=== PATIENT | female | born 1930 | race Caucasian/White ===

== ENCOUNTER → 2016-05-08 | Outpatient (CLI) | payer OTHER ==
[~2016-05-08] MED LIST: ACET-1311 PO; AMLO5TAB2 PO; ASPI-232 PO; BISA1TAB15 PO; CHOL20009 PO; CIPR-255 PO; DEXT20CA PO; FURO20TA PO; GABA1CAP PO; LORA-741 PO; METO25TA56 PO; MOML PO; NUTR-238 PO; OXYC-57 PO; POLY335019 PO; PRENTAB65 PO; SERT100T PO; SODI1ENE RE; SRQ/50 PO
[2016-05-08 11:17] LABS: BASO % 1.1 %; BASO ABS # 0.06 K/uL (0-0.2); COMPLETE YES; EOS % 2.8 %; HEMATOCRIT 31.6 % (37-47); IG% 0.4 %; LYMPH % 35.9 %; LYMPH ABS # 1.91 K/uL (1.2-3.4); MEAN CELL VOLUME 86.1 fL (80-100); MEAN CORPUSCULAR HEMOGLOBIN 28.6 pg (25-34); MEAN CORPUSCULAR HGB CONC 33.2 g/dl (32-36); NEUT % 53.8 %; PLATELET COUNT 217 K/uL (130-400); RED BLOOD COUNT 3.67 M/uL (4.2-5.4); WHITE BLOOD COUNT 5.32 K/uL (4.8-10.8)
[2016-05-08 11:26] LABS: BLOOD UREA NITROGEN 27 mg/dl (7-18); CALCIUM 8.9 mg/dl (8.5-10.1); CARBON DIOXIDE 27 mmol/L (21-32); CHLORIDE 106 mmol/L (98-107); GLUCOSE 154 mg/dl (70-99); POTASSIUM 4.5 mmol/L (3.5-5.1); SODIUM 141 mmol/L (136-145)
--- NOTE | 2016-05-15 12:18 | CODING QUERY MEDICAL NECESSITY ---
SUPPORTING DIAGNOSIS NEEDED A supporting diagnosis is required for the test/procedure performed on this patient in order for us to be reimbursed by the patient's insurance. Please provide a supporting diagnosis for the following test/procedure listed below next to the test name along with your signature. *If there is no additional diagnosis for this patient that would support the following test/procedure please document that below next to the test/procedure. Test(s)/Procedure(s) that require a supporting diagnosis: DOS 05/08 * Vitamin D DIAGNOSIS: Provider Signature: Date: Thank you [facility] Once completed, please kindly fax back to [phone] For questions please call [phone]
== END ==
LOC: C.LABUPHEI 10:46
PROVIDERS: ATTEND Family Medicine
DX: I12.9 Hypertensive chronic kidney disease with stage 1 through stage 4 chronic kidney disease, or unspecified chronic kidney disease (principal); N18.9 Chronic kidney disease, unspecified

== ENCOUNTER 2016-05-27 17:24 | Inpatient (IN) | payer OTHER ==
[~2016-05-27] VITALS: Ht 167.6 cm; Wt 70.3 kg
[2016-05-27] MEDS ORDERED: SODIUM CHLORIDE 0.9% 1000ML 1,000 ML IV STA (17:29)
--- NOTE | 2016-05-27 17:52 | EMERGENCY ROOM VISIT NOTE ---
History Report prepared by Chyna: Cole Simental Under the Supervision of: Dr. Leno Cabezas M.D. First contact with patient: 17:25 Chief Complaint: HIP PAIN Stated Complaint: HIP FX History of Present Illness The patient is an 85 year old female who presents to the Emergency Room with complaints of a sudden right hip fracture that occurred around 1200 today. Per EMS, the patient fell and then had an x-ray, which confirmed the right hip fracture. The patient was crying in pain when EMS got to the patient's room. She was given 75 mg Fentanyl prior to arrival. Her blood pressure is 98/73. She has baseline dementia. History is limited secondary to patient's dementia. Source of History: EMS Onset: Around 1200 today Position: other (right hip ) Quality: other (fracture) Timing: other (sudden) Note: Associated symptoms: Right hip pain. No other associated symptoms noted. Review of Systems ROS is limited secondary to patient's dementia. Past Medical & Surgical Medical Problems: (1) Abnormal EKG (2) Dementia (3) Hip fracture, right Family History Family history omitted secondary to age. Social History Marital Status: Housing Status: assisted Occupation Status: retired Current/Historical Medications Scheduled Acetaminophen (Tylenol), 650 MG PO Q6H Amlodipine Besylate (Norvasc), 5 MG PO DAILY Aspirin (Aspir-81), 2 TAB PO DAILY Bisacodyl (Bisacodyl), 2 TAB PO UD Cholecalciferol (Vitamin D), 1 TAB PO DAILY Dextromethorphan Hbr-Quinidine (Nuedexta), 10-20 MG PO DAILY Furosemide (Lasix), 10 MG PO DAILY Gabapentin (Neurontin), 100 MG PO TID Lorazepam (Ativan), 0.5 MG PO BID Metoprolol Tartrate (Lopressor) (Lopressor), 25 MG PO BID Nutritional Supplements (Nutritional Drink), 60 ML PO TID Polyethylene Glycol 3350 (Miralax), 17 GM PO DAILY Multivit-Min W/Fe-Fa (), 1 TAB PO DAILY Quetiapine Fumarate (Seroquel), 50 MG PO BID Sertraline Hcl (Zoloft), 200 MG PO DAILY Scheduled PRN Magnesium Hydroxide (Milk Of Magnesia), 30 ML PO UD PRN for Constipation Sodium Phosphates (Fleet Enema Six Pack), 1 EA RE UD PRN for Constipation Allergies Coded Allergies: Atorvastatin (Verified Allergy, Unknown, unknown, 05/27/16) Lisinopril (Verified Allergy, Unknown, unknown, 05/27/16) Penicillins (Verified Allergy, Unknown, unknown, 05/27/16) Pravastatin (Verified Allergy, Unknown, unknown, 05/27/16) Simvastatin (Verified Allergy, Unknown, unknown, 05/27/16) Sulfamethoxazole w/Trimethoprim (Verified Allergy, Unknown, unknown, ) Physical Exam Vital Signs Date Time Temp Pulse Resp B/P Pulse Ox O2 Delivery O2 Flow Rate FiO2 05/27/16 17:41 36.8 53 20 119/42 96 Room Air Physical Exam GENERAL: Patient is elderly-appearing and demented. In mild distress. HEENT: No acute trauma, normocephalic atraumatic, mucous membranes moist, no nasal congestion, no scleral icterus. NECK: No stridor, no adenopathy, no meningismus, trachea is midline. LUNGS: No dyspnea. Clear to auscultation and equal bilaterally. No wheeze, no rhonchi. HEART: Regular rate and rhythm. No murmurs, rubs, gallops appreciated. ABDOMEN: Soft, nontender, bowel sounds positive, no masses appreciated, no peritonitis. BACK: No midline tenderness, no CVA tenderness EXTREMITIES: Holding right hip flexed with pain on straightening, and pain on palpation. Distal pulses intact. NEUROLOGIC: Alert and oriented, no acute motor or sensory deficits, no focal weakness, cranial nerves grossly intact. SKIN: No rash, no jaundice, no diaphoresis. Medical Decision & Procedures ER Provider Diagnostic Interpretation: X ray results are stated below per my interpretation and the radiologist's interpretation. PELVIS 1 OR 2 VIEW ROUTINE CLINICAL HISTORY: Fall. Right hip pain. COMPARISON STUDY: No previous studies for comparison. FINDINGS: The sacroiliac joints and symphysis pubis are intact. There is no acute fracture within the pelvis or left hip. There is an acute comminuted, displaced and angulated intertrochanteric fracture of the right femur. IMPRESSION: Acute displaced, comminuted and angulated intertrochanteric right femoral fracture. Electronically signed by: Chun Gates M.D. 05/27/2016 7:07 PM Dictated Date/Time: 05/27/2016 7:06 PM RIGHT FEMUR 2 VIEWS ROUTINE CLINICAL HISTORY: Right hip pain following fall. COMPARISON: None FINDINGS: There is an acute displaced comminuted and angulated intertrochanteric fracture of the right femur. Alignment of the total right knee arthroplasty is anatomic. There is no periprosthetic fracture. There is a possible small right knee joint effusion. IMPRESSION: Acute displaced, comminuted and angulated intertrochanteric right femoral fracture. Electronically signed by: Chun Gates M.D. 05/27/2016 7:10 PM Dictated Date/Time: 05/27/2016 7:08 PM CHEST ONE VIEW PORTABLE CLINICAL HISTORY: Fall. Chest pain. COMPARISON STUDY: No previous studies for comparison. FINDINGS: There are median sternotomy wires and clips from bypass grafting. Mild cardiomegaly is noted without evidence of pulmonary edema. Lungs are clear. There is no pneumothorax or pleural effusion. IMPRESSION: 1. No acute findings. 2. Mild cardiomegaly. Electronically signed by: Chun Gates M.D. 05/27/2016 7:07 PM Dictated Date/Time: 05/27/2016 7:07 PM Laboratory Results 05/27/16 18:12 Red Blood Count 3.70, Mean Corpuscular Volume 85.4, Mean Corpuscular Hemoglobin 28.4, Mean Corpuscular Hemoglobin Concent 33.2, Mean Platelet Volume 9.7, Neutrophils (%) (Auto) 79.7, Lymphocytes (%) (Auto) 13.2, Monocytes (%) (Auto) 5.9, Eosinophils (%) (Auto) 0.7, Basophils (%) (Auto) 0.3, Neutrophils # (Auto) 9.54, Lymphocytes # (Auto) 1.58, Monocytes # (Auto) 0.71, Eosinophils # (Auto) 0.08, Basophils # (Auto) 0.03 05/27/16 18:12 Test 05/27/16 18:12 White Blood Count 11.96 K/uL (4.8-10.8) Red Blood Count 3.70 M/uL (4.2-5.4) Hemoglobin 10.5 g/dL (12.0-16.0) Hematocrit 31.6 % (37-47) Mean Corpuscular Volume 85.4 fL (80-100) Mean Corpuscular Hemoglobin 28.4 pg (25-34) Mean Corpuscular Hemoglobin Concent 33.2 g/dl (32-36) Platelet Count 221 K/uL (130-400) Mean Platelet Volume 9.7 fL (7.4-10.4) Neutrophils (%) (Auto) 79.7 % Lymphocytes (%) (Auto) 13.2 % Monocytes (%) (Auto) 5.9 % Eosinophils (%) (Auto) 0.7 % Basophils (%) (Auto) 0.3 % Neutrophils # (Auto) 9.54 K/uL (1.4-6.5) Lymphocytes # (Auto) 1.58 K/uL (1.2-3.4) Monocytes # (Auto) 0.71 K/uL (0.11-0.59) Eosinophils # (Auto) 0.08 K/uL (0-0.5) Basophils # (Auto) 0.03 K/uL (0-0.2) RDW Standard Deviation 42.7 fL (36.4-46.3) RDW Coefficient of Variation 13.7 % (11.5-14.5) Immature Granulocyte % (Auto) 0.2 % Immature Granulocyte # (Auto) 0.02 K/uL (0.00-0.02) Prothrombin Time 11.2 SECONDS (9.0-12.0) Prothromb Time International Ratio 1.0 (0.9-1.1) Activated Partial Thromboplast Time 44.7 SECONDS (21.0-31.0) Partial Thromboplastin Ratio 1.7 Anion Gap 8.0 mmol/L (3-11) Est Creatinine Clear Calc Drug Dose 28.9 ml/min Estimated GFR () 37.0 Estimated GFR (Non- 31.9 BUN/Creatinine Ratio 21.4 (10-20) Calcium Level 9.1 mg/dl (8.5-10.1) Laboratory results as reviewed by me. Medications Administered Medications (Trade) Dose Ordered Sig/Brenda Route Start Time Stop Time Status Last Admin Dose Admin Sodium Chloride (Nss 1000ml) 1,000 ml @ 75 mls/hr [id number] STAT IV 05/27/16 17:29 05/27/16 21:22 DC 05/27/16 18:15 75 MLS/HR ECG Indication: other (hip fracture) Rate (beats per minute): 50 Rhythm: sinus bradycardia Findings: T-wave inversion (Lateral), no acute ischemic change, no ectopy ED Course 172: The patient was evaluated in room B7. A complete history and physical exam was performed. 172: Ordered NSS 100 ml @ 75 mls/hr IV. 175: I reevaluated the patient and she is still comfortable. 1903: I reevaluated the patient and she is feeling alright. The patient expressed understanding and agreement of the treatment plan. The patient will be evaluated for further treatment. 1907: I discussed the patient with Dr. Rina JENSEN application development director - he will evaluate the patient for further treatment. Medical Decision Differential: Fracture, Dislocation, Cellulitis, Septic Joint, Ligamentous Injury, Effusion, DVT, amongst other pathologies entertained. 85 yr old female with fall on right hip several hours [employer] who had xray revealing hip fracture. Questionable whether she struck head or not but she has no contusion and family makes clear she is at her baseline. She was given fentanyl [employer] which seems to keep her comfortable. Imaging here with intra- troch fracture. Will bring in to medical team with ortho contacted for consult. Consults Time Called: 1903 Consulting Physician: Dr. Rina JENSEN application development director Returned Call: 1907 I discussed the patient with Dr. Rina JENSEN application development director - he will evaluate the patient for further treatment. Impression Primary Impression: Intertrochanteric fracture of right hip Additional Impression: Fall Scribe Attestation The scribe's documentation has been prepared under my direction and personally reviewed by me in its entirety. I confirm that the note above accurately reflects all work, treatment, procedures, and medical decision making performed by me. Departure Information Dispostion Being Evaluated By Hospitalist Referrals Ignacia Meier (PCP) Patient Instructions My [facility] Problem Qualifiers Primary Impression: Intertrochanteric fracture of right hip Encounter type: initial encounter Fracture type: closed Qualified Codes: S72.141A - Displaced intertrochanteric fracture of right femur, initial encounter for closed fracture Additional Impression: Fall Encounter type: initial encounter Qualified Codes: W19.XXXA - Unspecified fall, initial encounter
[2016-05-27 18:28] LABS: BASO % 0.3 %; BASO ABS # 0.03 K/uL (0-0.2); COMPLETE YES; EOS % 0.7 %; HEMATOCRIT 31.6 % (37-47); IG% 0.2 %; LYMPH % 13.2 %; LYMPH ABS # 1.58 K/uL (1.2-3.4); MEAN CELL VOLUME 85.4 fL (80-100); MEAN CORPUSCULAR HEMOGLOBIN 28.4 pg (25-34); MEAN CORPUSCULAR HGB CONC 33.2 g/dl (32-36); MEAN PLATELET VOLUME 9.7 fL (7.4-10.4); MONO % 5.9 %; NEUT % 79.7 %; PLATELET COUNT 221 K/uL (130-400); WHITE BLOOD COUNT 11.96 K/uL (4.8-10.8)
[2016-05-27] MEDS ORDERED: AMLO5TAB2 PO (18:30)
[2016-05-27] MEDS ORDERED: CHOL20009 PO (18:30)
[2016-05-27] MEDS ORDERED: BISA1TAB15 PO (18:30)
[2016-05-27] MEDS ORDERED: ASPI-232 PO (18:30)
[2016-05-27] MEDS ORDERED: ACET-1311 PO (18:30)
[2016-05-27] MEDS ORDERED: LORA-741 PO (18:30)
[2016-05-27] MEDS ORDERED: METO25TA56 PO (18:30)
[2016-05-27] MEDS ORDERED: SRQ/50 PO (18:30)
[2016-05-27] MEDS ORDERED: SODI1ENE RE (18:30)
[2016-05-27] MEDS ORDERED: GABA1CAP PO (18:30)
[2016-05-27] MEDS ORDERED: FURO20TA PO (18:30)
[2016-05-27] MEDS ORDERED: PRENTAB65 PO (18:30)
[2016-05-27] MEDS ORDERED: POLY335019 PO (18:30)
[2016-05-27] MEDS ORDERED: DEXT20CA PO (18:30)
[2016-05-27] MEDS ORDERED: MOML PO (18:30)
[2016-05-27] MEDS ORDERED: SERT100T PO (18:30)
[2016-05-27 18:36] LABS: PARTIAL THROMBOPLASTIN RATIO 1.7; PROTHROMBIN TIME (PATIENT) 11.2 SECONDS (9.0-12.0)
[2016-05-27] MEDS ORDERED: NUTR-238 PO (18:36)
[2016-05-27 18:43] LABS: BLOOD UREA NITROGEN 32 mg/dl (7-18); BUN/CREATININE RATIO 21.4 (10-20); CALCIUM 9.1 mg/dl (8.5-10.1); CARBON DIOXIDE 26 mmol/L (21-32); CHLORIDE 107 mmol/L (98-107); GLUCOSE 137 mg/dl (70-99); POTASSIUM 4.8 mmol/L (3.5-5.1); SODIUM 141 mmol/L (136-145)
--- NOTE | 2016-05-27 19:09 | DIAGNOSTIC IMAGING REPORT ---
PELVIS 1 OR 2 VIEW ROUTINE CLINICAL HISTORY: Fall. Right hip pain. COMPARISON STUDY: No previous studies for comparison. FINDINGS: The sacroiliac joints and symphysis pubis are intact. There is no acute fracture within the pelvis or left hip. There is an acute comminuted, displaced and angulated intertrochanteric fracture of the right femur. IMPRESSION: Acute displaced, comminuted and angulated intertrochanteric right femoral fracture. Electronically signed by: Chun Gates M.D. 05/27/2016 7:07 PM Dictated Date/Time: 05/27/2016 7:06 PM
--- NOTE | 2016-05-27 19:09 | DIAGNOSTIC IMAGING REPORT ---
CHEST ONE VIEW PORTABLE CLINICAL HISTORY: Fall. Chest pain. COMPARISON STUDY: No previous studies for comparison. FINDINGS: There are median sternotomy wires and clips from bypass grafting. Mild cardiomegaly is noted without evidence of pulmonary edema. Lungs are clear. There is no pneumothorax or pleural effusion. IMPRESSION: 1. No acute findings. 2. Mild cardiomegaly. Electronically signed by: Chun Gates M.D. 05/27/2016 7:07 PM Dictated Date/Time: 05/27/2016 7:07 PM
--- NOTE | 2016-05-27 19:12 | DIAGNOSTIC IMAGING REPORT ---
RIGHT FEMUR 2 VIEWS ROUTINE CLINICAL HISTORY: Right hip pain following fall. COMPARISON: None FINDINGS: There is an acute displaced comminuted and angulated intertrochanteric fracture of the right femur. Alignment of the total right knee arthroplasty is anatomic. There is no periprosthetic fracture. There is a possible small right knee joint effusion. IMPRESSION: Acute displaced, comminuted and angulated intertrochanteric right femoral fracture. Electronically signed by: Chun Gates M.D. 05/27/2016 7:10 PM Dictated Date/Time: 05/27/2016 7:08 PM
--- NOTE | 2016-05-27 19:51 | History and Physical ---
History & Physical Date & Time of Service: May 27, 2016 at 19:42 Chief Complaint: Hip Fx Primary Care Physician: Ignacia Meier History of Present Illness Source: patient Belinda Anne is a 85 yo female who resides at the [facility] who presents after a fall causing a right hip fracture at noon today. She has a background of dementia and hypertension. It does not seem that she has had a hip fracture before. Apparently she had an XRay at the [facility] confirming the fracture. Her family was initially here upon arrival to the ED and said she was mentating at baseline. She currently reports feeling very sore but thought she was in [place]. Past Medical/Surgical History PMHx: Dementia Depression Hypertension PSHx: Unknown Family History No pertinent FHx Social History Smoking Status: Never Smoker Marital Status: Occupational Status: retired Multi-Drug Resistant Organisms History of MDRO: No Allergies Coded Allergies: Atorvastatin (Verified Allergy, Unknown, unknown, 05/27/16) Lisinopril (Verified Allergy, Unknown, unknown, 05/27/16) Penicillins (Verified Allergy, Unknown, unknown, 05/27/16) Pravastatin (Verified Allergy, Unknown, unknown, 05/27/16) Simvastatin (Verified Allergy, Unknown, unknown, 05/27/16) Sulfamethoxazole w/Trimethoprim (Verified Allergy, Unknown, unknown, ) Home Medications Scheduled Acetaminophen (Tylenol), 650 MG PO Q6H Amlodipine Besylate (Norvasc), 5 MG PO DAILY Aspirin (Aspir-81), 2 TAB PO DAILY Bisacodyl (Bisacodyl), 2 TAB PO UD Cholecalciferol (Vitamin D), 1 TAB PO DAILY Dextromethorphan Hbr-Quinidine (Nuedexta), 10-20 MG PO DAILY Furosemide (Lasix), 10 MG PO DAILY Gabapentin (Neurontin), 100 MG PO TID Lorazepam (Ativan), 0.5 MG PO BID Metoprolol Tartrate (Lopressor) (Lopressor), 25 MG PO BID Nutritional Supplements (Nutritional Drink), 60 ML PO TID Polyethylene Glycol 3350 (Miralax), 17 GM PO DAILY Multivit-Min W/Fe-Fa (), 1 TAB PO DAILY Quetiapine Fumarate (Seroquel), 50 MG PO BID Sertraline Hcl (Zoloft), 200 MG PO DAILY Scheduled PRN Magnesium Hydroxide (Milk Of Magnesia), 30 ML PO UD PRN for Constipation Sodium Phosphates (Fleet Enema Six Pack), 1 EA RE UD PRN for Constipation Review of Systems A ROS was unable to be completed due to the patients altered mental status Physical Exam Vital Signs Date Time Temp Pulse Resp B/P Pulse Ox O2 Delivery O2 Flow Rate FiO2 05/27/16 17:41 36.8 53 20 119/42 96 Room Air General Appearance: WD/WN, + mild distress Head: normocephalic, atraumatic Eyes: normal inspection ENT: hearing grossly normal Neck: supple, no JVD Respiratory/Chest: lungs clear, normal breath sounds, no respiratory distress Cardiovascular: regular rate, rhythm, no murmur, normal peripheral pulses Abdomen/GI: normal bowel sounds, non tender, soft Extremities/Musculoskelatal: no calf tenderness, no pedal edema, + pertinent finding (Right leg in flexed position, tender to palpation. could still move toes but would not move leg. ) Neurologic/Psych: alert, + disoriented (x3) Skin: no rash Diagnostics Laboratory Results Results Past 24 Hours Test 05/27/16 18:12 Range/Units White Blood Count 11.96 4.8-10.8 K/uL Red Blood Count 3.70 4.2-5.4 M/uL Hemoglobin 10.5 12.0-16.0 g/dL Hematocrit 31.6 37-47 % Mean Corpuscular Volume 85.4 80-100 fL Mean Corpuscular Hemoglobin 28.4 25-34 pg Mean Corpuscular Hemoglobin Concent 33.2 32-36 g/dl Platelet Count 221 130-400 K/uL Mean Platelet Volume 9.7 7.4-10.4 fL Neutrophils (%) (Auto) 79.7 % Lymphocytes (%) (Auto) 13.2 % Monocytes (%) (Auto) 5.9 % Eosinophils (%) (Auto) 0.7 % Basophils (%) (Auto) 0.3 % Neutrophils # (Auto) 9.54 1.4-6.5 K/uL Lymphocytes # (Auto) 1.58 1.2-3.4 K/uL Monocytes # (Auto) 0.71 0.11-0.59 K/uL Eosinophils # (Auto) 0.08 0-0.5 K/uL Basophils # (Auto) 0.03 0-0.2 K/uL RDW Standard Deviation 42.7 36.4-46.3 fL RDW Coefficient of Variation 13.7 11.5-14.5 % Immature Granulocyte % (Auto) 0.2 % Immature Granulocyte # (Auto) 0.02 0.00-0.02 K/uL Prothrombin Time 11.2 9.0-12.0 SECONDS Prothromb Time International Ratio 1.0 0.9-1.1 Activated Partial Thromboplast Time 44.7 21.0-31.0 SECONDS Partial Thromboplastin Ratio 1.7 Sodium Level 141 136-145 mmol/L Potassium Level 4.8 3.5-5.1 mmol/L Chloride Level 107 98-107 mmol/L Carbon Dioxide Level 26 21-32 mmol/L Anion Gap 8.0 3-11 mmol/L Blood Urea Nitrogen 32 7-18 mg/dl Creatinine 1.50 0.60-1.20 mg/dl Est Creatinine Clear Calc Drug Dose 28.9 ml/min Estimated GFR () 37.0 Estimated GFR (Non- 31.9 BUN/Creatinine Ratio 21.4 10-20 Random Glucose 137 70-99 mg/dl Calcium Level 9.1 8.5-10.1 mg/dl Total Creatine Kinase 41 26-192 U/L Creatine Kinase MB 0.8 0.5-3.6 ng/ml Creatine Kinase MB Ratio 2.0 0-3.0 Troponin I < 0.015 0-0.045 ng/ml Diagnostic Radiology PELVIS 1 OR 2 VIEW ROUTINE CLINICAL HISTORY: Fall. Right hip pain. COMPARISON STUDY: No previous studies for comparison. FINDINGS: The sacroiliac joints and symphysis pubis are intact. There is no acute fracture within the pelvis or left hip. There is an acute comminuted, displaced and angulated intertrochanteric fracture of the right femur. IMPRESSION: Acute displaced, comminuted and angulated intertrochanteric right femoral fracture. RIGHT FEMUR 2 VIEWS ROUTINE CLINICAL HISTORY: Right hip pain following fall. COMPARISON: None FINDINGS: There is an acute displaced comminuted and angulated intertrochanteric fracture of the right femur. Alignment of the total right knee arthroplasty is anatomic. There is no periprosthetic fracture. There is a possible small right knee joint effusion. IMPRESSION: Acute displaced, comminuted and angulated intertrochanteric right femoral fracture. Electronically signed by: Chun Gates M.D. 05/27/2016 7:10 PM Dictated Date/Time: 05/27/2016 7:08 PM CHEST ONE VIEW PORTABLE CLINICAL HISTORY: Fall. Chest pain. COMPARISON STUDY: No previous studies for comparison. FINDINGS: There are median sternotomy wires and clips from bypass grafting. Mild cardiomegaly is noted without evidence of pulmonary edema. Lungs are clear. There is no pneumothorax or pleural effusion. IMPRESSION: 1. No acute findings. 2. Mild cardiomegaly. EKG Sinus bradycardia, 50bpm, no ST elevation Impression Assessment and Plan 85 yo F with dementia and hypertension who presents with R hip fracture. Plan: R hip fracture: - NPO except meds - IV fluids - CXR and EKG completed - Dilaudid for pain - Dr Rosa consulted by ED Hypertension - Hold Lasix 10mg daily, hold amlodipine 5mg daily, hold aspirin 81mg daily - Hydralazine 10mg IV PRN SBP > 160 or DBP > 110 Depression - Hold Seroquel 50mg BID and Zoloft 200mg daily and restart post-operatively Constipation - Holding daily Senna/Miralax, restart post-op VTE - Hold pre-operatively CODE STATUS: Need to discuss with family Dispo: Med Surg VTE Prophylaxis VTE Risk Assessment Done? Y/N: Yes Risk Level: Moderate Resident Tracking Resident Involvement: Resident Care Provided Care Provided: [facility] Assessment and Plan Attending Addendum: I have seen and examined this patient, have directed their medical care, have supervised the resident's interaction, and agree with the H&P as noted above. History of Present Illness: The patient is an 85-year-old female resident of [facility] who sustained a fall today on her right hip around noon, developed immediate pain, had emergency x-ray performed which confirmed a right hip fracture. She was Then sent emergency department for assessment. Her family was initially present in the emergency department, reported that she was at her baseline dementia state. Her history of present illness is otherwise limited due to her altered mental state. Review of systems: Severely limited due to patient's altered mental state as noted above, but nursing staff at [facility], and family report that she is otherwise at her baseline state. The patient is awake, alert and disoriented, normocephalic and atraumatic, lying in bed and in no acute distress. HEENT--PERRL, EOMI, mucous membranes and oropharynx dry. Neck--supple, no JVD or bruits, thyroid normal, trachea midline, no adenopathy. Heart--normal S1 and S2, no extra beats, no murmurs, rubs or gallops. Lungs--clear bilaterally, no respiratory distress, no accessory muscle use. Abdomen--normal bowel sounds and soft, nontender and nondistended, no hernias or masses, no organomegaly. Extremities--no cyanosis, clubbing or edema. There are good distal pulses b/l. Dermatologic--normal skin turgor, normal color, warm and dry, no abnormal lymph nodes, no rash. Neurologic--cranial nerves II through XII grossly intact. Rheumatologic--reproducible pain over her right hip area Psychiatric--demented, disoriented. Imaging Studies: Hip and Pelvis X-Rays: Consistent with right hip fracture. EKG--sinus bradycardia at a rate of [address] segment elevations in V1 to 3, and T-wave inversion in lead V4, with T-wave flattening in lead V5. Assessment and Plan: Right hip fracture--Dr. Sepulveda has been consulted from orthopedics, but the patient will need medical clearance first. Abnormal EKG--suggestion of anterior ischemia. Will continue metoprolol tartrate but reduced to 12.5 mg by mouth twice a day, and add Nitropaste 1/2 inch to anterior chest wall every 6 hours. We'll order 2-D echocardiogram, admitted to telemetry, and consult cardiology. We will hold amlodipine 5 mg by mouth daily, furosemide 10 mg by mouth daily, Dementia/depression: Hold sertraline, Seroquel, Nuedexta and gabapentin. Will change Ativan to IV and use when necessary.
[2016-05-27] MEDS ORDERED: ONDANSETRON INJ 2 MG/ML 2 ML VIAL IV PRN (20:45)
[2016-05-27] MEDS ORDERED: LORAZEPAM 2 MG/ML 1 ML VIAL IV PRN (20:45)
[2016-05-27] MEDS ORDERED: ZOLPIDEM TARTRATE 5 MG TAB PO PRN (20:45)
[2016-05-27] MEDS ORDERED: DiphenhydrAMINE HCL 50 MG/ML VIAL IV PRN (20:45)
[2016-05-27] MEDS ORDERED: PROMETHAZINE HCL INJ 12.5 MG in SODIUM CHLORIDE 0.9% 50ML 50 ML IV PRN (20:45)
[2016-05-27] MEDS ORDERED: BISACODYL 10 MG SUPP PR PRN (20:45)
[2016-05-27] MEDS ORDERED: DOCUSATE SODIUM 100 MG CAP PO PRN (20:45)
[2016-05-27] MEDS ORDERED: ACETAMINOPHEN 325 MG TAB PO PRN (20:45)
[2016-05-27] MEDS: METOPROLOL TARTRATE 25 MG TAB PO SCH (21:00)
--- NOTE | 2016-05-27 21:43 | ORTHOPEDIC CONSULTATION ---
DATE OF CONSULTATION: 05/27/2016 HISTORY OF PRESENT ILLNESS: The patient is an 85-year-old female who lives at [facility] suffered a fall and fractured hip this afternoon. Admitted on the medical service. PAST MEDICAL HISTORY: She has dementia, depression, hypertension, could not get history otherwise of her as she is disoriented. SOCIAL HISTORY: Nonsmoker. Does have a right knee replacement. ALLERGIES: Some multiple medications. See dictated H\T\P, per medicine attending these were reviewed. PHYSICAL EXAMINATION: Demonstrates that she is pleasantly demented, lying in bed in supine position. Just only her hip flexed because of pain. Movement of the hip causes pain. IMAGING DATA: Her radiographs reviewed, demonstrates that she has a displaced intratrochanteric hip fracture, angulated in varus. ASSESSMENT: Acute displaced angulated intertrochanteric hip fracture, right hip. PLAN: Trochanteric femoral nail fixation. This will be performed pending medical clearance and will need to discuss with her power of patent prosecution attorney or family members with regard to consenting her for surgery as patient is demented to perform any procedure such as that.
[2016-05-27] MEDS: NITROGLYCERIN OINT 2% 1GM PACKET EXT SCH (22:00)
[2016-05-27 22:13] VITALS: BP 134/71; PULSE 72; TEMP 36.5; O2SAT 96; Ht 167.6 cm; Wt 70.3 kg
[2016-05-27 22:36] LABS: CKMB/CK RATIO 1.6 (0-3.0)
[2016-05-28] VITALS (8 sets, daily range): BP systolic 90–137; BP diastolic 43–53; PULSE 61–83; TEMP 36.8–38.1; O2SAT 91–100
[2016-05-28] MEDS: SODIUM CHLOR 0.45% + 20MEQ KCL 1,000 ML IV SCH ×3 (00:28→22:00)
[2016-05-28] MEDS: NITROGLYCERIN OINT 2% 1GM PACKET EXT SCH ×4 (04:00→22:24)
[2016-05-28 05:39] LABS: BASO % 0.5 %; BASO ABS # 0.04 K/uL (0-0.2); COMPLETE YES; HEMATOCRIT 28.4 % (37-47); IG% 0.1 %; LYMPH % 25.9 %; LYMPH ABS # 2.06 K/uL (1.2-3.4); MEAN CELL VOLUME 85.5 fL (80-100); MEAN CORPUSCULAR HEMOGLOBIN 28.6 pg (25-34); MEAN CORPUSCULAR HGB CONC 33.5 g/dl (32-36); MEAN PLATELET VOLUME 9.6 fL (7.4-10.4); MONO % 8.4 %; NEUT % 63.1 %; PLATELET COUNT 218 K/uL (130-400); RED BLOOD COUNT 3.32 M/uL (4.2-5.4); WHITE BLOOD COUNT 7.96 K/uL (4.8-10.8)
[2016-05-28 05:55] LABS: PROTHROMBIN TIME (PATIENT) 11.2 SECONDS (9.0-12.0)
[2016-05-28] MEDS: HYDROmorphone INJ 0.5 MG/0.5 ML SYR IV PRN ×3 (06:08→15:55)
[2016-05-28 06:09] LABS: ALT/SGPT 17 U/L (12-78); AST/SGOT 19 U/L (15-37); BLOOD UREA NITROGEN 31 mg/dl (7-18); BUN/CREATININE RATIO 22.1 (10-20); CALCIUM 8.5 mg/dl (8.5-10.1); CARBON DIOXIDE 24 mmol/L (21-32); CHLORIDE 107 mmol/L (98-107); GLUCOSE 120 mg/dl (70-99); POTASSIUM 4.7 mmol/L (3.5-5.1); SODIUM 141 mmol/L (136-145)
[2016-05-28 06:13] LABS: ALB/GLOB RATIO 1.1 (0.9-2); ALKALINE PHOSPHATASE 107 U/L (45-117); CKMB/CK RATIO 1.3 (0-3.0)
[2016-05-28] MEDS ORDERED: PERFLUTREN LIPID MICROSPHERE (DEFINITY) IV ONE (07:32)
[2016-05-28] MEDS: METOPROLOL TARTRATE 25 MG TAB PO SCH ×2 (07:33→21:00)
[2016-05-28] MEDS ORDERED: INFLUENZA VIRUS QUAD VACCINE 0.5 ML SYR IM. ONE (08:00)
[2016-05-28] MEDS ORDERED: PNEUMOCOCCAL POLYSACCHARIDES 25 MCG/0.5 ML VIAL/SYR IM. ONE (08:00)
[2016-05-28] MEDS ORDERED: PNEUMOCOCCAL ADMINISTRATION CHARGE ONE (08:00)
[2016-05-28] MEDS ORDERED: INFLUENZA ADMINISTRATION CHARGE ONE (08:00)
--- NOTE | 2016-05-28 10:11 | ECHOCARDIOGRAM REPORT ---
*NOTICE TO RECEIVING REPUBLICAN AGENCY This information is strictly Confidential and protected under [place] law. [place] law prohibits you from making any further disclosure of this information unless further disclosure is expressly permitted by the written consent of the person to whom it pertains or is authorized by law. A general authorization for the release of medical or other information is not sufficient for this purpose. Hospital accepts no responsibility if the information is made available to any other person, INCLUDING THE PATIENT. Interpretation Summary * Name: JASON MITCHELL Study Date: 05/28/2016 08:10 AM BP: 109/48 mmHg * Patient Location: .MSICU\S\E108\S\1 HR: 62 * : 1930 (M/d/yyyy) Gender: Female Height: 66 in * Age: 85 yrs Ethnicity: CA Weight: 158 lb * Ordering Physician: Olivia Cavanaugh * Performed By: Orin Yao * * Reason For Study: ABNORMAL EKG, PRE-OP HIP ARTHROPLASTY * BSA: 1.8 m2 * -- Conclusions -- * 1. Normal left ventricular size and systolic function. EF 55-60%. Dyskinesis of the apex. Akinesis of the mid to distal septum. Mild hypokinesis of the mid anteroseptum. No visualized apical thrombus. Mild concentric left ventricular hypertrophy. Type 1 diastolic dysfunction. * 2. Sclerotic aortic valve without significant stenosis. * 3. Technically difficult study, enhanced with IV Definity. 4. No prior study available for comparison. Procedure Details * A complete two-dimensional transthoracic echocardiogram was performed (2D, M-mode, Doppler and color flow Doppler). * The study was technically difficult. * A contrast injection of Definity was performed to improve assessment of LV function. * Contrast was injected into an intravenous site in the right arm. * One vial of Definity ultrasound contrast was diluted in normal saline to a total volume of 10 ml. A total of '2' ml of solution was administered during imaging. * Lot # [id number] of Definity utilized for procedure. * Expiration date 10/18. * The attending nurse who injected the contrast agent was BENITA PENN RN. Left Ventricle * Normal left ventricular size and systolic function. EF 55-60%. Dyskinesis of the apex. Akinesis of the mid to distal septum. Mild hypokinesis of the mid anteroseptum. No visualized apical thrombus. Mild concentric left ventricular hypertrophy. Type 1 diastolic dysfunction. Right Ventricle * The right ventricle is normal in size and function. * The right ventricular systolic function is normal as assessed by tricuspid annular plane systolic excursion (TAPSE) (normal >1.5 cm). Atria * The left atrial size is normal. * Right atrial size is normal. * There is no evidence of atrial septal defect, but resolution does not allow assessment for a patent foramen ovale. Mitral Valve * The mitral valve leaflets appear thickened, but open well. * There is mild mitral annular calcification. * There is no mitral valve stenosis. * There is trace mitral regurgitation. Tricuspid Valve * The tricuspid valve is not well visualized, but is grossly normal. * There is no tricuspid stenosis. * Significant tricuspid regurgitation is absent. Aortic Valve * Sclerotic aortic valve without significant stenosis. * There is no significant aortic regurgitation. Pulmonic Valve * The pulmonary valve is inadequately visualized, but the Doppler data is adequate for interpretation. * There is no pulmonic valvular stenosis. * Trace pulmonic valvular regurgitation. Great Vessels * The aortic root is normal size. * Ascending aorta of normal dimension Pericardium/Pleural * There is no pericardial effusion. Great Vessels * Normal inferior vena cava size and collapsability with sniff indicates a normal right atrial pressure of 3 mmHg MMode 2D Measurements and Calculations IVSd 1.2 cm IVSs 1.4 cm LVIDd 4.4 cm LVIDs 2.5 cm LVPWd 1.2 cm LVPWs 1.5 cm IVS/LVPW 0.97 FS 43.2 % EDV(Teich) 86.6 ml ESV(Teich) 22.0 ml EF(Teich) 74.6 % EDV(cubed) 83.8 ml ESV(cubed) 15.4 ml EF(cubed) 81.7 % % IVS thick 22.0 % % LVPW thick 26.6 % LV mass(C)d 184.5 grams LV mass(C)dI 102.0 grams/m\S\2 LV mass(C)s 119.7 grams LV mass(C)sI 66.2 grams/m\S\2 SV(Teich) 64.5 ml SI(Teich) 35.7 ml/m\S\2 SV(cubed) 68.4 ml SI(cubed) 37.8 ml/m\S\2 Ao root diam 3.1 cm Ao root area 7.5 cm\S\2 ACS 1.1 cm LA dimension 3.3 cm asc Aorta Diam 2.5 cm LA/Ao 1.1 LVOT diam 2.0 cm LVOT area 3.1 cm\S\2 LVAd ap4 31.9 cm\S\2 LVLd ap4 7.9 cm EDV(MOD-sp4) 105.6 ml EDV(sp4-el) 109.9 ml LVAs ap4 20.5 cm\S\2 LVLs ap4 7.0 cm ESV(MOD-sp4) 47.9 ml ESV(sp4-el) 51.1 ml EF(MOD-sp4) 54.7 % EF(sp4-el) 53.5 % LVAd ap2 31.1 cm\S\2 LVLd ap2 8.4 cm EDV(MOD-sp2) 96.5 ml EDV(sp2-el) 97.8 ml LVAs ap2 16.3 cm\S\2 LVLs ap2 7.4 cm ESV(MOD-sp2) 29.7 ml ESV(sp2-el) 30.6 ml EF(MOD-sp2) 69.2 % EF(sp2-el) 68.7 % LVLd %diff 9.6 % EDV(MOD-bp) 106.6 ml LVLs %diff 6.2 % ESV(MOD-bp) 37.9 ml EF(MOD-bp) 64.4 % SV(MOD-sp4) 57.7 ml SI(MOD-sp4) 31.9 ml/m\S\2 SV(MOD-sp2) 66.8 ml SI(MOD-sp2) 36.9 ml/m\S\2 SV(MOD-bp) 68.6 ml SI(MOD-bp) 37.9 ml/m\S\2 SV(sp4-el) 58.8 ml SI(sp4-el) 32.5 ml/m\S\2 SV(sp2-el) 67.2 ml SI(sp2-el) 37.2 ml/m\S\2 Doppler Measurements and Calculations MV E max albina 80.9 cm/sec MV A max albina 94.9 cm/sec MV E/A 0.85 MV dec time 0.34 sec Ao V2 max 162.4 cm/sec Ao max PG 10.6 mmHg Ao max PG (full) 8.1 mmHg TATI(V,A) 1.5 cm\S\2 TATI(V,D) 1.5 cm\S\2 LV V1 max PG 2.4 mmHg LV V1 max 78.1 cm/sec TV E max albina 32.9 cm/sec PA V2 max 85.2 cm/sec PA max PG 2.9 mmHg
[2016-05-28 10:48] LABS: CKMB/CK RATIO 1.5 (0-3.0)
--- NOTE | 2016-05-28 12:56 | Clinical Documentation Query ---
CLINICAL DOCUMENTATION QUERY Dr. COLLINS, In your clinical opinion is this patient being managed for: (X ) Chronic kidney disease, stage 3 ( ) Other explanation of clinical findings (Please Explain) ( ) Unable to determine (Please Define) ( ) Need to Discuss ( ) Not Agree The medical record reflects the following clinical findings, treatment, and risk factors. Clinical Indicators: 85 yo female presenting with a R hip fracture. Review of GFR over the past 6 months showed a range of 29.5 to 37.9. (Cr range of 1.3-1.5) Treatment: monitor CMP Risk Factors: age, HTN Please clarify and document your clinical opinion in the progress notes and discharge summary. Terms such as "probable", "suspected", "likely", "questionable", "possible", or "still to be ruled out" are acceptable. IF IN AGREEMENT, YOU MUST DOCUMENT ABOVE DIAGNOSTIC STATEMENT IN DAILY PROGRESS NOTES AND DISCHARGE SUMMARY. This document is not part of the patient's record. Thank You, Grazyna Grimaldo, MINGO [phone]
--- NOTE | 2016-05-28 14:53 | Progress Note ---
Subjective Date of Service: May 28, 2016. Subjective Pt evaluation today including: conversation w/ patient, physical exam, chart review, lab review, review of studies, review of inpatient medication list Pt seen and examined Resting comfortably in bed Poor historian due to dementia Family at bedside, questions answered Problem List Medical Problems: (1) Fall Status: Acute (2) Intertrochanteric fracture of right hip Status: Acute Review of Systems Constitutional: No chills, No fever Respiratory: No cough, No sputum Cardiac: No chest pain, No orthopnea Abdomen: No diarrhea, No nausea, No pain, No vomiting Musculoskeletal: No joint pain, No muscle pain Female : No dysuria, No urinary frequency Objective Vital Signs Date Time Temp Pulse Resp B/P Pulse Ox O2 Delivery O2 Flow Rate FiO2 05/28/16 12:00 100 Nasal Cannula 2.0 05/28/16 12:00 37.2 69 16 112/49 100 Nasal Cannula 2.0 05/28/16 08:00 91 Room Air 05/28/16 08:00 37.3 70 16 90/43 91 Room Air 05/28/16 04:02 37.1 62 10 109/48 95 05/28/16 04:00 Room Air 05/28/16 00:01 36.9 61 16 115/51 94 05/27/16 23:59 Room Air 05/27/16 22:13 36.5 72 14 134/71 96 Room Air 05/27/16 20:30 67 22 133/61 94 Room Air 05/27/16 17:41 36.8 53 20 119/42 96 Room Air Physical Exam General Appearance: WD/WN, no apparent distress Neck: supple, no adenopathy Respiratory/Chest: lungs clear, normal breath sounds Cardiovascular: no edema, no gallop Neurologic/Psychiatric: alert, + disoriented Laboratory Results Last 24 Hours Test 05/27/16 18:12 05/27/16 22:07 05/27/16 22:40 05/28/16 05:12 White Blood Count 11.96 K/uL 7.96 K/uL Red Blood Count 3.70 M/uL 3.32 M/uL Hemoglobin 10.5 g/dL 9.5 g/dL Hematocrit 31.6 % 28.4 % Mean Corpuscular Volume 85.4 fL 85.5 fL Mean Corpuscular Hemoglobin 28.4 pg 28.6 pg Mean Corpuscular Hemoglobin Concent 33.2 g/dl 33.5 g/dl Platelet Count 221 K/uL 218 K/uL Mean Platelet Volume 9.7 fL 9.6 fL Neutrophils (%) (Auto) 79.7 % 63.1 % Lymphocytes (%) (Auto) 13.2 % 25.9 % Monocytes (%) (Auto) 5.9 % 8.4 % Eosinophils (%) (Auto) 0.7 % 2.0 % Basophils (%) (Auto) 0.3 % 0.5 % Neutrophils # (Auto) 9.54 K/uL 5.02 K/uL Lymphocytes # (Auto) 1.58 K/uL 2.06 K/uL Monocytes # (Auto) 0.71 K/uL 0.67 K/uL Eosinophils # (Auto) 0.08 K/uL 0.16 K/uL Basophils # (Auto) 0.03 K/uL 0.04 K/uL RDW Standard Deviation 42.7 fL 43.4 fL RDW Coefficient of Variation 13.7 % 13.8 % Immature Granulocyte % (Auto) 0.2 % 0.1 % Immature Granulocyte # (Auto) 0.02 K/uL 0.01 K/uL Prothrombin Time 11.2 SECONDS 11.2 SECONDS Prothromb Time International Ratio 1.0 1.0 Activated Partial Thromboplast Time 44.7 SECONDS Partial Thromboplastin Ratio 1.7 Sodium Level 141 mmol/L 141 mmol/L Potassium Level 4.8 mmol/L 4.7 mmol/L Chloride Level 107 mmol/L 107 mmol/L Carbon Dioxide Level 26 mmol/L 24 mmol/L Anion Gap 8.0 mmol/L 10.0 mmol/L Blood Urea Nitrogen 32 mg/dl 31 mg/dl Creatinine 1.50 mg/dl 1.40 mg/dl Est Creatinine Clear Calc Drug Dose 28.9 ml/min 28.5 ml/min Estimated GFR () 37.0 40.2 Estimated GFR (Non- 31.9 34.7 BUN/Creatinine Ratio 21.4 22.1 Random Glucose 137 mg/dl 120 mg/dl Calcium Level 9.1 mg/dl 8.5 mg/dl Total Creatine Kinase 41 U/L 45 U/L 56 U/L Creatine Kinase MB 0.8 ng/ml 0.7 ng/ml 0.7 ng/ml Creatine Kinase MB Ratio 2.0 1.6 1.3 Troponin I < 0.015 ng/ml < 0.015 ng/ml < 0.015 ng/ml Bedside Glucose 138 mg/dl Total Bilirubin 0.5 mg/dl Aspartate Amino Transf (AST/SGOT) 19 U/L Alanine Aminotransferase (ALT/SGPT) 17 U/L Alkaline Phosphatase 107 U/L Total Protein 6.8 gm/dl Albumin 3.5 gm/dl Globulin 3.3 gm/dl Albumin/Globulin Ratio 1.1 Test 05/28/16 10:07 Total Creatine Kinase 89 U/L Creatine Kinase MB 1.3 ng/ml Creatine Kinase MB Ratio 1.5 Troponin I < 0.015 ng/ml Assessment and Plan 85 yo F with dementia and hypertension who presents with R hip fracture s/p mechanical fall : R hip fracture - NPO except meds - IV fluids - CXR and EKG completed, noted inverted T waves - ECHO - normal left ventricular size and systolic function. EF 55-60%. Dyskinesis of the apex. Akinesis of the mid to distal septum. Mild hypokinesis of the mid anteroseptum. No visualized apical thrombus. Mild concentric left ventricular hypertrophy. Type 1 diastolic dysfunction. -Appreciate cardiology recs - Dilaudid for pain - Dr Rosa consulted by ED, pt is acceptable moderate-high risk for surgery CAD with hx of CABG - Noted T wave inversions on EKG - ECHO as noted above - Appreciate cards recommendations, BB in perioperative period CKD stage 3 at baseline, cont to monitor PRPS Hypertension - Hold Lasix 10mg daily, hold amlodipine 5mg daily, hold aspirin 81mg daily - Hydralazine 10mg IV PRN SBP > 160 or DBP > 110 Depression - Hold Seroquel 50mg BID and Zoloft 200mg daily and restart post-operatively Constipation - Holding daily Senna/Miralax, restart post-op VTE - Hold pre-operatively CODE STATUS: DNR Dispo: Med Surg
--- NOTE | 2016-05-28 16:31 | CARDIOLOGY CONSULTATION ---
DATE OF CONSULTATION: 05/28/2016 DATE OF CONSULTATION: 05/28/2016. CONSULTING PHYSICIAN: Dr. Cavanaugh. REASON FOR CONSULTATION: Abnormal ECG preoperative hip arthroplasty. TIME: 1533 p.m. HISTORY OF PRESENT ILLNESS: Ms. Anne is an 85-year-old female with advanced dementia, multivessel CAD status post CABG, history of mitral regurgitation, hypertension, and dyslipidemia. She presented to [facility] on 05/27/2016 after falling and suffering a right hip fracture. She has advanced dementia and is unable to answer any questions meaningfully. Her son and [id number] are present at the bedside. Her son visits her nearly every day and states that he was not given any reports of syncope, near syncope, chest pain or shortness of breath but told that she simply fell. She complained that she had hip pain and was found to have an acute displaced comminuted and angulated trochanteric right femoral fracture. Orthopedic surgery has evaluated her, Dr. Rosa, and he has recommended femoral nail fixation pending medical evaluation. Her son states that on 10/10/2015 she underwent bypass surgery. She apparently suffered an acute anterior wall ST elevation myocardial infarction and was transferred emergently to [facility]. While there, she underwent a free GALVAN to LAD, saphenous vein graft to OM1, and saphenous vein graft to PDA. Due to her presentation the decision was made to forgo mitral valve procedure. There was malcoaptation of A3 and P3 cusps with severe mitral regurgitation during preoperative transesophageal echo. According to operative notes there was an issue with bruising of the GALVAN and the fact that the distal GALVAN was divided with very little flow, it appears as though the GALVAN was sized and used as a conduit as a free graft, stating that it was attached to the bland of one of the vein grafts. Her son believes that she may have followed up with [facility] in [facility]; however, there are no records within [facility] system, stating that she has followed up with any cardiology following her bypass surgery. Unfortunately, it is uncertain if she has been experiencing any cardiac symptoms due to her mental status. She denied any pain at the present time in her hip, chest, or any other location. Prior to her bypass surgery she apparently had some mild dementia issues but was able to live independently. Following her bypass surgery she has had advanced dementia and does not even recognize that her son is her son. She recognizes him as familiar and family, but not as her son. She has been residing at [facility] while her is in assisted living at another facility. REVIEW OF SYSTEMS: As above and otherwise unobtainable due to patient's mental status. PAST MEDICAL HISTORY: 1. Multivessel coronary artery disease status post coronary artery bypass graft x3 including a free GALVAN to LAD, SVG to OM1, SVG to PDA. 2. Mitral regurgitation. 3. Dyslipidemia. 4. Hypertension. 5. Advanced dementia. HOME MEDICATIONS: Include amlodipine 5 mg daily, aspirin 162 mg daily, Lasix 10 mg daily, Neurontin 100 mg t.i.d., metoprolol tartrate 25 mg b.i.d., Seroquel 50 mg b.i.d., Zoloft 200 mg daily. HOSPITAL INPATIENT MEDICATIONS: Include metoprolol tartrate 25 mg twice daily, however she has not yet received the dose due to intermittent hypotension. ALLERGIES: INCLUDE STATINS, LISINOPRIL, BACTRIM. SOCIAL HISTORY: Her son states that she has not smoked. No alcohol or drugs. She is . Her also has a milder form of dementia and lives in an assisted living facility. She has 2 sons, Gopal and Jh, as well as a daughter named Evelyne. Her son, Gopal and his are present at the bedside and help provide the majority of today's history. FAMILY HISTORY: Father in his 70s from myocardial infarction. PHYSICAL EXAMINATION: VITAL SIGNS: From this morning when she was examined demonstrated temperature of 37.3 degrees, heart rate 70 beats per minute, respiration rate 16, blood pressure 90/43 mmHg, oxygen saturation 91% on room air. Weight 67.9 kg. GENERAL: In no acute distress. She was alert but not oriented. HEAD, EYES, EARS, NOSE, AND THROAT: Anicteric sclerae. NECK: No appreciable JVD. Soft bilateral carotid bruits versus radiation of cardiac murmur. Normal carotid upstrokes bilaterally. CARDIAC EXAMINATION: PMI was nonpalpable. There was no ventricular heave. Regular, normal S1, S2. 2/6 early peaking systolic ejection murmur best heard at the right upper sternal border. No rubs or gallops. LUNGS: Clear to auscultation bilaterally without wheezes, rales or rhonchi. ABDOMEN: Soft, nontender, nondistended, normoactive bowel sounds, no bruits noted. EXTREMITIES: 2+ radial pulses bilaterally. 1+ dorsalis pedis pulse bilaterally. No cyanosis or pitting edema. No palpable cords. PSYCHIATRIC: Affect appears appropriate. She was very pleasant. LABORATORY DATA: White blood cell count 7.96, hemoglobin 9.5, platelets 218. Sodium 141, potassium 4.7, BUN 31, creatinine 1.4 down from 1.5 on presentation. Troponin undetectable x4, albumin 3.5. AST 19, ALT 17. INR 1. Femur and pelvis x-ray reports reviewed. As noted above. Chest x-ray image from 05/27/2016 personally reviewed. No obvious infiltrate. Sternotomy wires noted. As per radiology, no acute findings. Echocardiogram images personally reviewed. Echo was performed this morning. Normal LV systolic function with EF of 55-60%. Dyskinesis of the apex with akinesis of the mid to distal septum and mild hypokinesis of the mid anteroseptal. No visualized apical thrombus. Type 1 diastolic dysfunction. Mild LVH. Sclerotic aortic valve without significant stenosis. CABG report from [facility] from 10/10/2015 was obtained for review. Free GALVAN to LAD, SVG to OM1, SVG to PDA as noted above. ECG on presentation personally reviewed. Sinus bradycardia at 50 beats per minute. Anterior T-wave inversion. Prolonged QT. Repeat ECG on 05/28/2016 at 8:19 a.m. demonstrated anterior T-wave inversion with minor T-wave inversion. Prolonged QT. Telemetry personally reviewed. No arrhythmias. ASSESSMENT AND PLAN: 1. Multivessel coronary artery disease status post coronary artery bypass graft x3. No reported angina however she is a very poor historian given her advanced dementia. Would recommend aspirin 81 mg daily if no contraindication. Continue beta zulma therapy if blood pressure and heart rate allow. She is statin intolerant. 2. Wall motion abnormalities on echo: Corresponds with her documented LAD STEMI in October of 2015. Overall, LV systolic function appears to be preserved. Would continue metoprolol if tolerated. She is intolerant to HTUY inhibitor. 3. Hypertension: She has a history of hypertension but has actually been hypotensive intermittently while here. If blood pressure allows would resume beta zulma therapy, if her heart rate also allows. Would choose this over calcium channel zulma. 4. Dyslipidemia: She is intolerant to statins. 5. Preoperative cardiac assessment: Given the fact that her functional status cannot be well determined because of her advanced dementia, would have to assume high cardiac risk for planned surgery. Would not delay surgery for stress testing given the importance of surgery to be done sooner rather than later for mortality benefit and the hope of ambulating once again. This was discussed in detail with her son and [id number]. They were in agreement and actually stated that it would be very important for quality of life to try to allow her to resume walking which she typically does with a walker. They understand that she would be considered high risk and stated that they would accept the risk to undergo such procedure if deemed appropriate by orthopedics. Would recommend that she remain on beta zulma therapy throughout the perioperative state, if her heart rate and blood pressure allow, which currently at this time has had intermittent bradycardia and hypotension. 6. Disposition: No further cardiac testing recommended at this time. Plan of care is discussed with Dr. Brito of the primary hospitalist service. Please call for any other questions or concerns. Thank you for allowing me to participate in the care of Ms. Anne.
[2016-05-28 16:37] LABS: URINE APPEARANCE CLEAR (CLEAR); URINE BILIRUBIN NEG (NEG); URINE COLOR YELLOW; URINE EPITHELIAL CELL AUTO >30 /lpf (0-5); URINE NITRITE NEG (NEG); URINE PH 5.5 (4.5-7.5); URINE SPECIFIC GRAVITY 1.019 (1.000-1.030); UROBILINOGEN NEG (NEG); ZZURINE CULT IF INDIC CATH YES
[2016-05-28 16:44] LABS: MANUAL MICROSCOPIC REQUIRED? NO; REVIEW REQ? YES
[2016-05-28] MEDS ORDERED: SODIUM BICARB 8.4% INJ 50 MEQ/50 ML SYR - CCU EMERGENCY DRUG IV ONE (16:49)
[2016-05-28] MEDS ORDERED: FENTANYL CITRATE INJ 50 MCG/1 ML 2 ML VIAL ONE (17:11)
[2016-05-28] MEDS ORDERED: BUPIVACAINE 0.5 % 5 MG/1 ML PF 10ML VIAL ONE (17:13)
[2016-05-28] MEDS ORDERED: HYDROmorphone INJ 2 MG/ML SYR/VIAL IV PRN (17:15)
[2016-05-28] MEDS ORDERED: ATROPINE SULFATE 0.1 MG/ML 5ML SYR IV PRN (17:15)
[2016-05-28] MEDS ORDERED: EpHEDrine SULFATE INJ 50 MG/ML AMP IV PRN (17:15)
[2016-05-28] MEDS ORDERED: FLUMAZENIL 0.1 MG/1 ML 10 ML VIAL IV PRN (17:15)
[2016-05-28] MEDS ORDERED: ONDANSETRON INJ 2 MG/ML 2 ML VIAL IV PRN (17:15)
[2016-05-28] MEDS ORDERED: PHENYLEPHRINE 100MCG/ML 5ML SYR IV PRN (17:15)
[2016-05-28] MEDS ORDERED: NALOXONE HCL 0.4 MG/1 ML VIAL/CARP IV PRN (17:15)
[2016-05-28] MEDS ORDERED: LABETALOL HCL IV 5 MG/ML 20ML IV PRN (17:15)
[2016-05-28] MEDS ORDERED: FENTANYL CITRATE INJ 50 MCG/1 ML 2 ML VIAL IV PRN (17:15)
[2016-05-28] MEDS ORDERED: MEPERIDINE HCL 25 MG/ML CARP IV PRN (17:15)
--- NOTE | 2016-05-28 17:15 | History & Physical Bridge Note ---
H&P Re-Evaluation Bridge Note: I have examined the patient, reviewed the History & Physical and in the interval since the performance of the History & Physical I have noted the following changes of clinical significance: No changes noted
[2016-05-28] MEDS ORDERED: PROPOFOL IV EMULSION 10 MG/ML 20 ML VIAL IV ONE (17:44)
[2016-05-28] MEDS ORDERED: PHENYLEPHRINE HCL INJ 10 MG/ML VIAL ONE (17:44)
--- NOTE | 2016-05-28 19:01 | [facility] Post Operative Brief Note ---
Immediate Operative Summary Operative Date May 28, 2016. Pre-Operative Diagnosis Acute Displaced Angulated Intertrochanteric Hip Fracture Right Post-Operative Diagnosis Acute Displaced Angulated Intertrochanteric Hip Fracture Right Procedure(s) Performed ORIF Right trochanteric fracture with Synthes trans trochanteric femoral nailing Surgeon Dr. [address] Mechanical Engineer Surgeon(s) none Estimated Blood Loss 100 mL Findings See Dict Specimens none per surgeon Drains N Anesthesia Spinal w/ sedation Complication(s) None Disposition Recovery Room / PACU
[2016-05-28] MEDS ORDERED: MAGNESIUM HYDROXIDE SUSP 30 ML UDC PO PRN (19:15)
[2016-05-28] MEDS ORDERED: OXYCODONE HCL IR 5 MG TAB (IMMEDIATE RELEASE) PO PRN (19:15)
[2016-05-28] MEDS ORDERED: ALUMINUM/MAGNESIUM/SIMETH (MAALOX MAX) 30 ML UDC PO PRN (19:15)
--- NOTE | 2016-05-28 19:37 | Anesthesiology Progress Note ---
Anesthesia Post Op Note Date & Time May 28, 2016 at 19:33 Vital Signs Pain Intensity: 0.0 Vital Signs Past 12 Hours Date Time Temp Pulse Resp B/P Pulse Ox O2 Delivery O2 Flow Rate FiO2 05/28/16 16:00 38.1 79 18 96/51 91 Room Air 05/28/16 16:00 91 Room Air 05/28/16 12:00 100 Nasal Cannula 2.0 05/28/16 12:00 37.2 69 16 112/49 100 Nasal Cannula 2.0 05/28/16 08:00 91 Room Air 05/28/16 08:00 37.3 70 16 90/43 91 Room Air Notes Mental Status: alert / awake / arousable, participated in evaluation Pt Amnestic to Procedure: Yes Nausea / Vomiting: adequately controlled Pain: adequately controlled Airway Patency, RR, SpO2: stable & adequate BP & HR: stable & adequate Hydration State: stable & adequate Neuraxial Anesthesia: was administered, sensory block is resolving Anesthetic Complications: no major complications apparent The patient did well with the procedure. She was monitored with an arterial line intraoperatively and required phenylephrine to maintain normotension after the spinal anesthetic. In the PACU, her vitals have been stable without requiring any pressors. She is awake and appears much more comfortable then she did preoperatively. She will be monitored on telemetry overnight.
--- NOTE | 2016-05-28 19:53 | DIAGNOSTIC IMAGING REPORT ---
RIGHT HIP 2 VIEWS CLINICAL HISTORY: Postoperative examination. FINDINGS: AP and crosstable lateral portable views of the right hip are correlated with femoral radiographs dated 05/27/2016. The skeletal structures are osteopenic. Intertrochanteric and intramedullary nails transfix intertrochanteric fracture of the right femur. There has been cheondoism of near-anatomic alignment. A small posterior fragment is noted. A single screw transfixes the distal aspect of the intramedullary nail. The imaged right bony pelvis appears intact. There are expected postoperative changes overlying the right hip including skin clips, subcutaneous gas, and soft tissue swelling. Arthritic change is noted in the right hip. IMPRESSION: Expected postoperative findings status post open reduction and internal fixation of an intertrochanteric right hip fracture as above. Electronically signed by: Charles Almanzar M.D. 05/28/2016 7:51 PM Dictated Date/Time: 05/28/2016 7:49 PM
[2016-05-28] MEDS: CLINDAMYCIN IV 600 MG in DEXTROSE 5% ADD-VANTAGE 50ML 50 ML IV SCH (20:52)
[2016-05-28] MEDS: DOCUSATE SODIUM 100 MG CAP PO SCH (21:00)
--- NOTE | 2016-05-28 22:22 | OPERATIVE REPORT ---
DATE OF OPERATION: 05/28/2016 PREOPERATIVE DIAGNOSIS: Right displaced, angulated intertrochanteric hip fracture. POSTOPERATIVE DIAGNOSIS: Same. PROCEDURE: Open reduction and internal fixation of right intertrochanteric hip fracture using a Synthes transtrochanteric nail, 12 mm x 130 degree titanium cannulated trochanteric fixation nail 170 mm in length with an 11 mm x 95 mm titanium helical blade and a 5 mm x 36 mm locking screw. SURGEON: Dr. Lanier. HANGING FLAGS DECORATOR: None. ANESTHESIA: Spinal with sedation. SPECIMENS: None. DRAINS: None. COMPLICATIONS: None. BLOOD LOSS: 100 mL. PERTINENT HISTORY: This is an 85-year-old female who sustained a fall, injuring her right hip. She was unable to ambulate, transported to [facility]. Radiographs were obtained, noting a displaced intertrochanteric right hip fracture. The patient was admitted to the hospital, optimized for surgery and then scheduled for surgery as indicated. All potential risks, benefits, complications, alternatives, rehab, potential for incomplete relief of symptoms, need for further surgery, DVT, PE, , persistent pain, swelling, scarring, weakness, neurovascular injury, wound complications, bone fracture, hardware failure, nonunion, malunion were discussed with the patient. The patient decided to proceed with the procedure as indicated. PROCEDURE IN DETAIL: The patient was transferred to the operative suite. The proper site was identified. The consent was reviewed, the patient was then administered sedation and spinal anesthetic. Once appropriate, the patient then transferred to the fracture table where the lower extremity was placed in fracture table traction and the nonoperative leg was placed in the well leg gorman. All bony prominences were properly padded and protected. The padded post was placed in the perineum and the patient was positioned appropriately. Next the right leg was placed on traction and reduction of the fracture was performed under fluoroscopic control. Next the operative hip was then sterilely prepped and draped in the usual fashion. Next a 10-blade scalpel incision was used to make an incision proximal to the greater trochanter. The incision was deep in the subcutaneous tissue and fascia and the tip of the greater trochanter was then palpated followed by placement of a guide pin under fluoroscopic control driven into the greater trochanter down to the level of the less trochanter. This was confirmed in AP and lateral projections followed by placement of the proximal reamer over the cannulated guide pin. Next the reamer was then removed using the soft tissue protector, which was also removed. Next the ball tip guide corby was placed into the proximal femur under fluoroscopic control confirmed with AP and lateral fluoroscope projections. Next the trochanteric nail was then passed over the guide corby into the femur, the guide corby was removed and then under fluoroscopic control appropriate level of the femoral nail was then placed in AP projections. Next the targeting device was then fixed to the driving handle and 10-blade scalpel incision was made in the lateral aspect of the thigh. Next the tissue protector and cannulated guide system was then passed into the soft tissue until it was securely fixed against a lateral aspect of the femoral cortex. This was also confirmed under C-arm. Next the guide pin for the spiral blade was driven into the lateral aspect of the femur confirming this with AP lateral projections until the guide pin was in the center of the femoral neck and head approximately 5 mm from the subcortical bone of the femur. Next the spiral blade was then measured and then the lateral cortex was then drilled with the cortex reamer followed by use of the triple reamer with the depth stop set at appropriate depth. In this case an 11 mm x 95 mm spiral blade was then inserted over the cannulated guide corby under fluoroscopic control. This was seated appropriately then traction was reduced from the limb and the fracture was then gently compressed and then locked proximally with the flexible screwdriver. Next the spiral blade was then disengaged from its insertion handle, insertion handle was then removed and the guide pin was removed from the femoral neck and head. Next the lateral targeting arm was used to insert the distal locking screw. First a 10-blade scalpel incision was made in the lateral aspect of the thigh, captured drill sleeves were then tamped gently to the lateral aspect of the femoral cortex then the locking screw hole was then drilled, measured and then an appropriate length screw was placed to lock the distal aspect of the nail. Next targeting sleeves were then removed. The insertion arm was then removed from the nail and final x-rays were obtained in AP and lateral projections. All incisions were then copiously irrigated with sterile normal saline. The proximal gluteus fascia was then closed using interrupted #1 Vicryl, the dermis was closed using buried interrupted 2-0 Vicryl sutures in all three incisions and the skin was then closed using skin bigg. A sterile compressive dressing consisting of Xeroform gauze, sterile 4 x 4's and Tegaderm was applied. The patient was then awakened and taken to recovery in stable condition. I attest to the content of the Intraoperative Record and any orders documented therein. Any exceptions are noted below. MTDD
[2016-05-29] VITALS (20 sets, daily range): BP systolic 100–150; BP diastolic 50–77; PULSE 72–87; TEMP 36.2–37.7; O2SAT 91–100
[2016-05-29] MEDS: SODIUM CHLOR 0.45% + 20MEQ KCL 1,000 ML IV SCH ×3 (03:30→23:37)
[2016-05-29] MEDS: MoRPHine SULFATE 4 MG/ML 1 ML CARP\\VIAL IV PRN ×3 (04:14→18:03)
[2016-05-29] MEDS: CLINDAMYCIN IV 600 MG in DEXTROSE 5% ADD-VANTAGE 50ML 50 ML IV SCH (04:26)
[2016-05-29] MEDS: NITROGLYCERIN OINT 2% 1GM PACKET EXT SCH ×4 (04:26→23:32)
--- NOTE | 2016-05-29 07:12 | DIAGNOSTIC IMAGING REPORT ---
INTRAOPERATIVE RADIOGRAPHS CLINICAL HISTORY: Open reduction and internal fixation of the right femur. Fluoroscopy time: 113 seconds. FINDINGS: 4 spot fluoroscopic views of the right femur are correlated with radiographs of the femur dated 05/27/2016. Intertrochanteric and intramedullary nails transfix a comminuted intertrochanteric fracture of the right femur with rastafarian of near-anatomic alignment. A single cortical lag screw transfixes the distal aspect of the nail. There is no new fracture identified. Overlying soft tissue edema is noted. IMPRESSION: Intraoperative images from open reduction and internal fixation of a right femoral fracture as above. Electronically signed by: Charles Almanzar M.D. 05/28/2016 7:22 PM Dictated Date/Time: 05/28/2016 7:21 PM
--- NOTE | 2016-05-29 07:12 | DIAGNOSTIC IMAGING REPORT ---
INTRAOPERATIVE RADIOGRAPHS CLINICAL HISTORY: Open reduction and internal fixation of the right femur. Fluoroscopy time: 113 seconds. FINDINGS: 4 spot fluoroscopic views of the right femur are correlated with radiographs of the femur dated 05/27/2016. Intertrochanteric and intramedullary nails transfix a comminuted intertrochanteric fracture of the right femur with episcopalian of near-anatomic alignment. A single cortical lag screw transfixes the distal aspect of the nail. There is no new fracture identified. Overlying soft tissue edema is noted. IMPRESSION: Intraoperative images from open reduction and internal fixation of a right femoral fracture as above. Electronically signed by: Charles Almanzar M.D. 05/28/2016 7:22 PM Dictated Date/Time: 05/28/2016 7:21 PM
[2016-05-29 07:40] LABS: BASO % 0.4 %; BASO ABS # 0.03 K/uL (0-0.2); EOS % 1.2 %; HEMATOCRIT 21.2 % (37-47); IG% 0.1 %; LYMPH % 20.3 %; LYMPH ABS # 1.49 K/uL (1.2-3.4); MEAN CELL VOLUME 85.5 fL (80-100); MEAN CORPUSCULAR HEMOGLOBIN 29.4 pg (25-34); MEAN CORPUSCULAR HGB CONC 34.4 g/dl (32-36); MEAN PLATELET VOLUME 9.8 fL (7.4-10.4); MONO % 7.6 %; NEUT % 70.4 %; PLATELET COUNT 187 K/uL (130-400); RED BLOOD COUNT 2.48 M/uL (4.2-5.4); WHITE BLOOD COUNT 7.34 K/uL (4.8-10.8)
--- NOTE | 2016-05-29 07:41 | Orthopedic Progress Note ---
Orthopedic Progress Note Date of Service May 29, 2016. Subjective Post OP Day: 1 Additional Notes: Pt awake, appears alert but nonverbal. Somewhat tearful this AM but does not voice any complaints. Objective Dressings C/D/I; thigh with swelling but normal for this type of surgery. Will not follow command to move ankles/toes. Date Time Temp Pulse Resp B/P Pulse Ox O2 Delivery O2 Flow Rate FiO2 05/29/16 04:13 91 Room Air 05/29/16 03:50 36.9 83 18 106/50 100 Room Air 05/29/16 00:26 91 Room Air 05/28/16 23:34 37.2 78 18 117/48 99 Nasal Cannula 2.0 05/28/16 20:45 91 Room Air 05/28/16 20:40 36.8 83 18 137/53 100 Room Air 2.0 05/28/16 19:45 36.9 90 19 95/63 100 Nasal Cannula 2 05/28/16 19:35 88 20 107/43 100 Nasal Cannula 2 05/28/16 19:25 74 22 112/62 97 Nasal Cannula 2 05/28/16 19:15 73 13 118/53 99 Nasal Cannula 2 05/28/16 19:07 37.5 78 18 108/73 100 Nasal Cannula 2 05/28/16 16:00 38.1 79 18 96/51 91 Room Air 05/28/16 16:00 91 Room Air 05/28/16 12:00 100 Nasal Cannula 2.0 05/28/16 12:00 37.2 69 16 112/49 100 Nasal Cannula 2.0 05/28/16 08:00 91 Room Air 05/28/16 08:00 37.3 70 16 90/43 91 Room Air Laboratory Results 24 Hours: Test 05/29/16 07:05 Additional Notes: Labs pending Assessment & Plan Assessment: POD 1 s/p Right TFN Plan: PT/OT as able Planning for return to [facility] when stable Inhouse Planning Pain Management: Morphine, Oxy IR DVT Prophylaxis: TEDs, SCDs, Lovenox Discharge Planning Discharge Planning: prison facility
[2016-05-29] MEDS: HYDROmorphone INJ 0.5 MG/0.5 ML SYR IV PRN ×2 (07:49→11:57)
[2016-05-29 07:51] LABS: INR 1.1 (0.9-1.1); PROTHROMBIN TIME (PATIENT) 11.4 SECONDS (9.0-12.0)
[2016-05-29] MEDS: MULTIVITAMIN TAB PO SCH ×2 (07:52→09:00)
[2016-05-29] MEDS: METOPROLOL TARTRATE 25 MG TAB PO SCH ×3 (07:52→20:31)
[2016-05-29] MEDS: DOCUSATE SODIUM 100 MG CAP PO SCH ×3 (07:52→20:31)
[2016-05-29] MEDS ORDERED: ENOXAPARIN 30 MG/0.3 ML SYR SQ SCH (08:00)
[2016-05-29 08:05] LABS: BUN/CREATININE RATIO 21.7 (10-20); CALCIUM 8.4 mg/dl (8.5-10.1); CREATININE 1.5 mg/dl (0.60-1.20); POTASSIUM 4.7 mmol/L (3.5-5.1)
[2016-05-29 08:09] LABS: COMPLETE YES; POIKILOCYTOSIS PRESENT
[2016-05-29] MEDS: METOPROLOL TARTRATE 1 MG/ML VIAL IV. SCH ×2 (12:00→18:04)
--- NOTE | 2016-05-29 13:31 | Clinical Documentation Query ---
CLINICAL DOCUMENTATION QUERY Dr. COLLINS, In your clinical opinion is this patient being managed for: ( X ) Acute blood loss anemia ( ) Other explanation of clinical findings (Please Explain) ( ) Unable to determine (Please Define) ( ) Need to Discuss ( ) Not Agree The medical record reflects the following clinical findings, treatment, and risk factors. Clinical Indicators: 85 yo female with R hip fracture. Initial Hgb 10.5, Hct 31.6 which has dropped to 7.3/21.1 Treatment: 2 U PRBC, IV fluids, H/H monitoring Risk Factors: fall with fracture requiring subsequent ORIF Please clarify and document your clinical opinion in the progress notes and discharge summary. Terms such as "probable", "suspected", "likely", "questionable", "possible", or "still to be ruled out" are acceptable. IF IN AGREEMENT, YOU MUST DOCUMENT ABOVE DIAGNOSTIC STATEMENT IN DAILY PROGRESS NOTES AND DISCHARGE SUMMARY. This document is not part of the patient's record. Thank You, Grazyna Grimaldo, MINGO [phone]
--- NOTE | 2016-05-29 15:20 | Progress Note ---
Subjective Date of Service: May 29, 2016. Subjective Pt evaluation today including: conversation w/ patient, physical exam, chart review, lab review, review of studies, review of inpatient medication list Problem List Medical Problems: (1) Fall Status: Acute (2) Intertrochanteric fracture of right hip Status: Acute Review of Systems Unable to obtain due to dementia Objective Vital Signs Date Time Temp Pulse Resp B/P Pulse Ox O2 Delivery O2 Flow Rate FiO2 05/29/16 13:45 36.8 77 18 150/70 99 05/29/16 12:39 36.5 80 18 109/70 94 05/29/16 12:09 36.5 77 20 122/54 91 05/29/16 12:00 36.8 77 18 109/77 91 Room Air 05/29/16 12:00 93 Room Air 05/29/16 12:00 99/56 05/29/16 11:49 36.2 79 18 112/55 99 2.0 05/29/16 11:40 36.8 85 18 106/70 94 05/29/16 11:03 36.8 85 20 109/72 05/29/16 10:03 36.9 85 18 100/77 94 05/29/16 09:32 36.8 85 18 118/67 94 05/29/16 09:15 36.7 85 18 126/63 92 05/29/16 08:00 93 Room Air 05/29/16 07:52 37.7 85 20 110/67 97 2.0 05/29/16 04:13 91 Room Air 05/29/16 03:50 36.9 83 18 106/50 100 Room Air 05/29/16 00:26 91 Room Air 05/28/16 23:34 37.2 78 18 117/48 99 Nasal Cannula 2.0 05/28/16 20:45 91 Room Air 05/28/16 20:40 36.8 83 18 137/53 100 Room Air 2.0 05/28/16 19:45 36.9 90 19 95/63 100 Nasal Cannula 2 05/28/16 19:35 88 20 107/43 100 Nasal Cannula 2 05/28/16 19:25 74 22 112/62 97 Nasal Cannula 2 05/28/16 19:15 73 13 118/53 99 Nasal Cannula 2 05/28/16 19:07 37.5 78 18 108/73 100 Nasal Cannula 2 05/28/16 16:00 38.1 79 18 96/51 91 Room Air 05/28/16 16:00 91 Room Air Physical Exam General Appearance: WD/WN, no apparent distress Neck: supple, no adenopathy, thyroid normal Respiratory/Chest: chest non-tender, lungs clear, normal breath sounds Cardiovascular: no edema, no gallop Abdomen: non tender, soft Neurologic/Psychiatric: alert, + disoriented Laboratory Results Last 24 Hours Test 05/28/16 16:00 05/29/16 07:05 05/29/16 15:00 Urine Color YELLOW Urine Appearance CLEAR Urine pH 5.5 Urine Specific Phillips 1.019 Urine Protein NEG Urine Glucose (UA) NEG Urine Ketones NEG Urine Occult Blood NEG Urine Nitrite NEG Urine Bilirubin NEG Urine Urobilinogen NEG Urine Leukocyte Esterase SMALL Urine WBC (Auto) 5-10 /hpf Urine RBC (Auto) 0-4 /hpf Urine Hyaline Casts (Auto) 1-5 /lpf Urine Epithelial Cells (Auto) >30 /lpf Urine Bacteria (Auto) 1+ Urine Yeast (Auto) BUDDING White Blood Count 7.34 K/uL Red Blood Count 2.48 M/uL Hemoglobin 7.3 g/dL Hematocrit 21.2 % Mean Corpuscular Volume 85.5 fL Mean Corpuscular Hemoglobin 29.4 pg Mean Corpuscular Hemoglobin Concent 34.4 g/dl Platelet Count 187 K/uL Mean Platelet Volume 9.8 fL Neutrophils (%) (Auto) 70.4 % Lymphocytes (%) (Auto) 20.3 % Monocytes (%) (Auto) 7.6 % Eosinophils (%) (Auto) 1.2 % Basophils (%) (Auto) 0.4 % Neutrophils # (Auto) 5.16 K/uL Lymphocytes # (Auto) 1.49 K/uL Monocytes # (Auto) 0.56 K/uL Eosinophils # (Auto) 0.09 K/uL Basophils # (Auto) 0.03 K/uL RDW Standard Deviation 43.4 fL RDW Coefficient of Variation 13.8 % Immature Granulocyte % (Auto) 0.1 % Immature Granulocyte # (Auto) 0.01 K/uL Poikilocytosis PRESENT Prothrombin Time 11.4 SECONDS Prothromb Time International Ratio 1.1 Sodium Level 140 mmol/L Potassium Level 4.7 mmol/L Chloride Level 108 mmol/L Carbon Dioxide Level 23 mmol/L Anion Gap 9.0 mmol/L Blood Urea Nitrogen 33 mg/dl Creatinine 1.50 mg/dl Est Creatinine Clear Calc Drug Dose 26.6 ml/min Estimated GFR () 37.0 Estimated GFR (Non- 31.9 BUN/Creatinine Ratio 21.7 Random Glucose 129 mg/dl Calcium Level 8.4 mg/dl Total Bilirubin 0.5 mg/dl Aspartate Amino Transf (AST/SGOT) 24 U/L Alanine Aminotransferase (ALT/SGPT) 17 U/L Alkaline Phosphatase 86 U/L Total Protein 6.1 gm/dl Albumin 3.0 gm/dl Globulin 3.1 gm/dl Albumin/Globulin Ratio 1.0 Assessment and Plan 85 yo F with dementia and hypertension who presents with R hip fracture s/p mechanical fall : R hip fracture - NPO except meds - IV fluids - CXR and EKG completed, noted inverted T waves - ECHO - normal left ventricular size and systolic function. EF 55-60%. Dyskinesis of the apex. Akinesis of the mid to distal septum. Mild hypokinesis of the mid anteroseptum. No visualized apical thrombus. Mild concentric left ventricular hypertrophy. Type 1 diastolic dysfunction. -Appreciate cardiology recs - Dilaudid for pain - Dr Rosa consulted by ED, pt is acceptable moderate-high risk for surgery - Repair completed 05/28, however acute blood loss anemia noted on 05/29, transfused with 2 units PRBCS CAD with hx of CABG - Noted T wave inversions on EKG - ECHO as noted above - Appreciate cards recommendations, BB in perioperative period CKD stage 3 at baseline, cont to monitor PRPS Hypertension - Hold Lasix 10mg daily, hold amlodipine 5mg daily, hold aspirin 81mg daily - Hydralazine 10mg IV PRN SBP > 160 or DBP > 110 Depression - Hold Seroquel 50mg BID and Zoloft 200mg daily and restart post-operatively Constipation - Holding daily Senna/Miralax, restart post-op VTE - Hold pre-operatively CODE STATUS: DNR Dispo: Med Surg
[2016-05-29 15:29] LABS: HEMATOCRIT 26.5 % (37-47)
[2016-05-29] MEDS ORDERED: VANCOMYCIN INJ 1,700 MG in SODIUM CHLORIDE 0.9% 500ML 500 ML IV ONE (15:45)
[2016-05-29] MEDS ORDERED: VANCOMYCIN CONSULT ACTIVE PRN ×2 (16:30)
--- NOTE | 2016-05-29 16:35 | Pharmacy Progress Note ---
Pharmacy Antibiotic Consult Date of Service: May 29, 2016. Pharmacy Dosing Scope Pharmacy is consulted to initiate Vancomycin IV dosing therapy, order appropriate labs and adjust drug dose/frequency. Subjective The patient is a 85 year old female admitted on May 27, 2016 at 19:31 with urine culture now growing Gram positive cocci and Gram negative bacilli. Patient lives at [facility]. Objective Height (Feet): 5 Height (Inches): 6.00 Weight (Kilograms): 68.400 Lab Results (24hrs): Laboratory Tests Test 05/29/16 07:05 BUN/Creatinine Ratio 21.7 Blood Urea Nitrogen 33 mg/dl Creatinine 1.50 mg/dl White Blood Count 7.34 K/uL Red Blood Count 2.48 M/uL Hemoglobin 7.3 g/dL Hematocrit 21.2 % Mean Corpuscular Volume 85.5 fL Mean Corpuscular Hemoglobin 29.4 pg Mean Corpuscular Hemoglobin Concent 34.4 g/dl Platelet Count 187 K/uL Mean Platelet Volume 9.8 fL Neutrophils (%) (Auto) 70.4 % Lymphocytes (%) (Auto) 20.3 % Monocytes (%) (Auto) 7.6 % Eosinophils (%) (Auto) 1.2 % Basophils (%) (Auto) 0.4 % Neutrophils # (Auto) 5.16 K/uL Lymphocytes # (Auto) 1.49 K/uL Monocytes # (Auto) 0.56 K/uL Eosinophils # (Auto) 0.09 K/uL Basophils # (Auto) 0.03 K/uL Micro Results: Item Value Date Time Urine Culture - Preliminary Resulted 05/28/16 1600 Urine,Catheterized Gram Negative Bacilli Gram Positive Cocci MRSA DNA Surveillance Screen - Final Complete 05/27/16 2200 Nasal Specimen Negative for MRSA by DNA Probe Recent Pertinent Medications Cipro 400mg IV daily started today Assessment & Plan Loading dose: Vancomycin 1700 mg (25mg/kg) IV X 1 dose then: * Random level with AM labs, about 12 hours after the loading dose is given * Patient has a long half life, so this will give us an idea of how patient is clearing the Vancomycin, as BMI = 24, and I am concerned patient is going to clear the drug faster than the estimated half life. * Estimated pharmacokinetic parameters: T1/2 = 26hrs, Heath = 0.027/hr, Vd = 0.7L/ Kg * Goal trough level estimate: between 15 - 20 mcg/mL for UTI * Random level has been ordered for: with AM labs. Pharmacy will continue to follow and will adjust dose/frequency as necessary. Thank you
[2016-05-29] MEDS: CIPROFLOXACIN / D5W 400 MG in PREMIXED IN D5W 200 ML IV SCH (19:48)
[2016-05-29] MEDS ORDERED: VANCOMYCIN INJ 1,000 MG in SODIUM CHLORIDE 0.9% 250ML 250 ML IV SCH (21:00)
[2016-05-30] VITALS (24 sets, daily range): BP systolic 95–128; BP diastolic 39–65; PULSE 66–80; TEMP 36.3–37.1; O2SAT 92–100
[2016-05-30] MEDS: METOPROLOL TARTRATE 1 MG/ML VIAL IV. SCH ×2 (00:17→06:08)
[2016-05-30] MEDS: NITROGLYCERIN OINT 2% 1GM PACKET EXT SCH ×4 (04:23→21:50)
[2016-05-30 07:12] LABS: BASO % 0.6 %; BASO ABS # 0.06 K/uL (0-0.2); EOS % 4.3 %; HEMATOCRIT 22.5 % (37-47); IG% 0.2 %; LYMPH % 13.8 %; LYMPH ABS # 1.35 K/uL (1.2-3.4); MEAN CELL VOLUME 85.6 fL (80-100); MEAN CORPUSCULAR HEMOGLOBIN 28.9 pg (25-34); MEAN CORPUSCULAR HGB CONC 33.8 g/dl (32-36); MEAN PLATELET VOLUME 9.8 fL (7.4-10.4); MONO % 8.1 %; PLATELET COUNT 179 K/uL (130-400); RED BLOOD COUNT 2.63 M/uL (4.2-5.4); WHITE BLOOD COUNT 9.76 K/uL (4.8-10.8)
[2016-05-30 07:21] LABS: PROTHROMBIN TIME (PATIENT) 11.2 SECONDS (9.0-12.0)
[2016-05-30 07:42] LABS: COMPLETE YES
[2016-05-30 07:50] LABS: ALB/GLOB RATIO 0.9 (0.9-2); BUN/CREATININE RATIO 25.9 (10-20); CALCIUM 8.2 mg/dl (8.5-10.1); CREATININE 1.4 mg/dl (0.60-1.20)
[2016-05-30] MEDS: METOPROLOL TARTRATE 25 MG TAB PO SCH ×3 (07:50→20:58)
[2016-05-30] MEDS: DOCUSATE SODIUM 100 MG CAP PO SCH ×2 (07:51→20:58)
[2016-05-30] MEDS: MULTIVITAMIN TAB PO SCH (07:51)
[2016-05-30] MEDS: LORAZEPAM INJ 0.5 MG in SYRINGE 0.75 ML IV PRN ×2 (07:55→18:26)
[2016-05-30] MEDS: MoRPHine SULFATE 4 MG/ML 1 ML CARP\\VIAL IV PRN ×3 (08:43→18:36)
[2016-05-30] MEDS: SODIUM CHLOR 0.45% + 20MEQ KCL 1,000 ML IV SCH ×2 (10:14→19:25)
--- NOTE | 2016-05-30 10:26 | Pharmacy Progress Note ---
Pharmacy Antibiotic Prog Note Date of Service: May 30, 2016. Subjective: The patient received VANC 1700mg (25mg/kg) IV x 1 05/29/16. * The patient is currently on day # 2 of VANC IV therapy for UTI. Pertinent PMH: assisted resident ([facility]), CKD-3 (at baseline), s/p hip fracture with surgery 05/28/16 Objective: Height (Feet): 5 Height (Inches): 6.00 Weight (Kilograms): 70.300 Levels: Item Value Date Time Random Vancomycin Level 13.5 mcg/ml 05/30/16 0647 Lab Results (24hrs): Laboratory Tests Test 05/30/16 06:47 BUN/Creatinine Ratio 25.9 Blood Urea Nitrogen 36 mg/dl Creatinine 1.40 mg/dl White Blood Count 9.76 K/uL Red Blood Count 2.63 M/uL Hemoglobin 7.6 g/dL Hematocrit 22.5 % Mean Corpuscular Volume 85.6 fL Mean Corpuscular Hemoglobin 28.9 pg Mean Corpuscular Hemoglobin Concent 33.8 g/dl Platelet Count 179 K/uL Mean Platelet Volume 9.8 fL Neutrophils (%) (Auto) 73.0 % Lymphocytes (%) (Auto) 13.8 % Monocytes (%) (Auto) 8.1 % Eosinophils (%) (Auto) 4.3 % Basophils (%) (Auto) 0.6 % Neutrophils # (Auto) 7.12 K/uL Lymphocytes # (Auto) 1.35 K/uL Monocytes # (Auto) 0.79 K/uL Eosinophils # (Auto) 0.42 K/uL Basophils # (Auto) 0.06 K/uL Micro Results: Item Value Date Time Urine Culture - Preliminary Resulted 05/28/16 1600 Urine,Catheterized Escherichia Coli--pansensitive gm + cocco MRSA DNA Surveillance Screen - Final Complete 05/27/16 2200 Nasal Specimen Negative for MRSA by DNA Probe Recent Pertinent Medications: * Day # 2 Cipro 400mg IV q 24 hours Assessment & Plan: VANC-IV: * This drug level indicates patient ready to be redosed. * Maintenance Dose: VANC 1000mg (~15 mg/kg) IV every 30 hours (estimate t1/2~ 25 hours). * Goal trough level estimate: ~ 15 - 20 mcg/mL (urinary source). * VANC trough level has been ordered @ [facility] prior to 06/02/16 0000 dose. Will monitor renal function closely. Pharmacy will continue to follow and will adjust dose/frequency as necessary. Thank you
--- NOTE | 2016-05-30 11:57 | Orthopedic Progress Note ---
Orthopedic Progress Note Date of Service May 30, 2016. Subjective Post OP Day: 2 Additional Notes: History limited from the patient. She complains of pain with palpation of the right hip. Answers that the medicines don't take the pain away. Objective calves soft nontender, N/V intact, dressing C/D/I Patient is alert but does not speak. She is sitting up in bed with a COLLECTION SYSTEMS FOREMAN helping feed the patient. No distress noted. Right thigh is soft with minimal swelling. Date Time Temp Pulse Resp B/P Pulse Ox O2 Delivery O2 Flow Rate FiO2 05/30/16 11:01 36.7 73 18 125/65 94 Nasal Cannula 2.0 05/30/16 08:00 93 Room Air 05/30/16 07:44 36.5 72 20 105/39 93 Room Air 05/30/16 06:08 66 132/69 05/30/16 04:10 36.4 71 18 114/56 100 Nasal Cannula 2.0 05/30/16 04:00 100 Nasal Cannula 2.0 05/30/16 00:17 66 130/70 05/30/16 00:01 94 Nasal Cannula 2.0 05/29/16 23:06 37.0 87 16 114/58 94 Nasal Cannula 2.0 05/29/16 20:00 96 Nasal Cannula 2.0 05/29/16 19:04 36.9 72 20 130/71 96 Nasal Cannula 2.0 05/29/16 18:04 105/70 05/29/16 16:00 93 Room Air 05/29/16 15:15 36.7 76 18 132/63 98 Nasal Cannula 2.0 05/29/16 13:45 36.8 77 18 150/70 99 05/29/16 12:39 36.5 80 18 109/70 94 05/29/16 12:09 36.5 77 20 122/54 91 05/29/16 12:00 36.8 77 18 109/77 91 Room Air 05/29/16 12:00 93 Room Air 05/29/16 12:00 99/56 Laboratory Results 24 Hours: Test 05/29/16 15:20 05/30/16 06:47 Hematocrit 26.5 % 22.5 % Hemoglobin 9.3 g/dL 7.6 g/dL White Blood Count 9.76 K/uL Red Blood Count 2.63 M/uL Mean Corpuscular Volume 85.6 fL Mean Corpuscular Hemoglobin 28.9 pg Mean Corpuscular Hemoglobin Concent 33.8 g/dl Platelet Count 179 K/uL Mean Platelet Volume 9.8 fL Neutrophils (%) (Auto) 73.0 % Lymphocytes (%) (Auto) 13.8 % Monocytes (%) (Auto) 8.1 % Eosinophils (%) (Auto) 4.3 % Basophils (%) (Auto) 0.6 % Neutrophils # (Auto) 7.12 K/uL Lymphocytes # (Auto) 1.35 K/uL Monocytes # (Auto) 0.79 K/uL Eosinophils # (Auto) 0.42 K/uL Basophils # (Auto) 0.06 K/uL Prothromb Time International Ratio 1.0 Prothrombin Time 11.2 SECONDS Assessment & Plan Assessment: POD 2 s/p Right TFN Post operative anemia--medicine following and transfusing. Plan: PT/OT as able Planning for return to [facility] when stable Inhouse Planning Pain Management: Morphine, Oxy IR DVT Prophylaxis: TEDs, SCDs, Lovenox Discharge Planning Discharge Planning: shelter facility
[2016-05-30] MEDS: VANCOMYCIN INJ 1,000 MG in SODIUM CHLORIDE 0.9% 250ML 250 ML IV SCH (12:21)
[2016-05-30 12:29] LABS: HEMATOCRIT 21.5 % (37-47)
--- NOTE | 2016-05-30 13:33 | Progress Note ---
Subjective Date of Service: May 30, 2016. Subjective Pt evaluation today including: conversation w/ patient, physical exam, chart review, lab review, review of studies, review of inpatient medication list Problem List Medical Problems: (1) Fall Status: Acute (2) Intertrochanteric fracture of right hip Status: Acute Review of Systems Unable to obtain due to dementia Objective Vital Signs Date Time Temp Pulse Resp B/P Pulse Ox O2 Delivery O2 Flow Rate FiO2 05/30/16 12:22 95 Nasal Cannula 05/30/16 11:01 36.7 73 18 125/65 94 Nasal Cannula 2.0 05/30/16 08:00 93 Room Air 05/30/16 07:44 36.5 72 20 105/39 93 Room Air 05/30/16 06:08 66 132/69 05/30/16 04:10 36.4 71 18 114/56 100 Nasal Cannula 2.0 05/30/16 04:00 100 Nasal Cannula 2.0 05/30/16 00:17 66 130/70 05/30/16 00:01 94 Nasal Cannula 2.0 05/29/16 23:06 37.0 87 16 114/58 94 Nasal Cannula 2.0 05/29/16 20:00 96 Nasal Cannula 2.0 05/29/16 19:04 36.9 72 20 130/71 96 Nasal Cannula 2.0 05/29/16 18:04 105/70 05/29/16 16:00 93 Room Air 05/29/16 15:15 36.7 76 18 132/63 98 Nasal Cannula 2.0 05/29/16 13:45 36.8 77 18 150/70 99 Physical Exam General Appearance: WD/WN, + mild distress Neck: supple, no adenopathy Respiratory/Chest: lungs clear, normal breath sounds Cardiovascular: no edema, no gallop Abdomen: non tender, soft Neurologic/Psychiatric: alert, + disoriented Laboratory Results Last 24 Hours Test 05/29/16 15:20 05/30/16 06:47 05/30/16 12:18 Hemoglobin 9.3 g/dL 7.6 g/dL 7.6 g/dL Hematocrit 26.5 % 22.5 % 21.5 % White Blood Count 9.76 K/uL Red Blood Count 2.63 M/uL Mean Corpuscular Volume 85.6 fL Mean Corpuscular Hemoglobin 28.9 pg Mean Corpuscular Hemoglobin Concent 33.8 g/dl Platelet Count 179 K/uL Mean Platelet Volume 9.8 fL Neutrophils (%) (Auto) 73.0 % Lymphocytes (%) (Auto) 13.8 % Monocytes (%) (Auto) 8.1 % Eosinophils (%) (Auto) 4.3 % Basophils (%) (Auto) 0.6 % Neutrophils # (Auto) 7.12 K/uL Lymphocytes # (Auto) 1.35 K/uL Monocytes # (Auto) 0.79 K/uL Eosinophils # (Auto) 0.42 K/uL Basophils # (Auto) 0.06 K/uL RDW Standard Deviation 44.5 fL RDW Coefficient of Variation 14.3 % Immature Granulocyte % (Auto) 0.2 % Immature Granulocyte # (Auto) 0.02 K/uL Red Blood Cell Morphology Unremarkable Prothrombin Time 11.2 SECONDS Prothromb Time International Ratio 1.0 Sodium Level 137 mmol/L Potassium Level 5.0 mmol/L Chloride Level 107 mmol/L Carbon Dioxide Level 23 mmol/L Anion Gap 7.0 mmol/L Blood Urea Nitrogen 36 mg/dl Creatinine 1.40 mg/dl Est Creatinine Clear Calc Drug Dose 28.5 ml/min Estimated GFR () 40.2 Estimated GFR (Non- 34.7 BUN/Creatinine Ratio 25.9 Random Glucose 118 mg/dl Calcium Level 8.2 mg/dl Total Bilirubin 0.5 mg/dl Aspartate Amino Transf (AST/SGOT) 27 U/L Alanine Aminotransferase (ALT/SGPT) 18 U/L Alkaline Phosphatase 77 U/L Total Protein 5.9 gm/dl Albumin 2.8 gm/dl Globulin 3.1 gm/dl Albumin/Globulin Ratio 0.9 Random Vancomycin Level 13.5 mcg/ml Assessment and Plan 85 yo F with dementia and hypertension who presents with R hip fracture s/p mechanical fall : R hip fracture - NPO except meds - IV fluids - CXR and EKG completed, noted inverted T waves - ECHO - normal left ventricular size and systolic function. EF 55-60%. Dyskinesis of the apex. Akinesis of the mid to distal septum. Mild hypokinesis of the mid anteroseptum. No visualized apical thrombus. Mild concentric left ventricular hypertrophy. Type 1 diastolic dysfunction. -Appreciate cardiology recs - Dilaudid for pain - Dr Rogusky consulted by ED, pt is acceptable moderate-high risk for surgery - Repair completed 05/28, however acute blood loss anemia noted on 05/29, transfused with 2 units PRBCS - On 05/30 hg 7.6, will transfuse additional 2 units PRBCs CAD with hx of CABG - Noted T wave inversions on EKG - ECHO as noted above - Appreciate cards recommendations, BB in perioperative period CKD stage 3 at baseline, cont to monitor PRPS Hypertension - Hold Lasix 10mg daily, hold amlodipine 5mg daily, hold aspirin 81mg daily - Hydralazine 10mg IV PRN SBP > 160 or DBP > 110 Depression - Hold Seroquel 50mg BID and Zoloft 200mg daily and restart post-operatively Constipation - Holding daily Senna/Miralax, restart post-op VTE - Hold pre-operatively CODE STATUS: DNR Dispo: Med Surg
[2016-05-30] MEDS: CIPROFLOXACIN / D5W 400 MG in PREMIXED IN D5W 200 ML IV SCH (16:58)
[2016-05-30 21:20] LABS: HEMATOCRIT 23.3 % (37-47)
[2016-05-31] VITALS (9 sets, daily range): BP systolic 112–155; BP diastolic 62–74; PULSE 69–88; TEMP 36.3–37.1; O2SAT 87–100
[2016-05-31] MEDS: LORAZEPAM INJ 0.5 MG in SYRINGE 0.75 ML IV PRN ×4 (02:01→20:00)
[2016-05-31] MEDS: NITROGLYCERIN OINT 2% 1GM PACKET EXT SCH ×4 (04:26→22:37)
[2016-05-31] MEDS: SODIUM CHLOR 0.45% + 20MEQ KCL 1,000 ML IV SCH ×2 (04:30→14:13)
[2016-05-31 08:12] LABS: HEMATOCRIT 25.5 % (37-47); MEAN CORPUSCULAR HEMOGLOBIN 30.3 pg (25-34); MEAN CORPUSCULAR HGB CONC 35.7 g/dl (32-36); MEAN PLATELET VOLUME 9.8 fL (7.4-10.4); PLATELET COUNT 173 K/uL (130-400); WHITE BLOOD COUNT 7.43 K/uL (4.8-10.8)
[2016-05-31 08:41] LABS: CREATININE 1.1 mg/dl (0.60-1.20)
[2016-05-31] MEDS: MULTIVITAMIN TAB PO SCH (09:18)
[2016-05-31] MEDS: METOPROLOL TARTRATE 25 MG TAB PO SCH ×2 (09:18→21:11)
[2016-05-31] MEDS: ACETAMINOPHEN 500 MG TAB PO PRN (09:18)
[2016-05-31] MEDS: DOCUSATE SODIUM 100 MG CAP PO SCH ×2 (09:19→21:00)
[2016-05-31] MEDS: MoRPHine SULFATE 4 MG/ML 1 ML CARP\\VIAL IV PRN (09:33)
[2016-05-31] MEDS ORDERED: CIPR-255 PO (10:06)
[2016-05-31] MEDS ORDERED: OXYC-57 PO (10:07)
--- NOTE | 2016-05-31 10:12 | Discharge Instructions ---
Discharge Instructions Admission Reason for Admission: Hip Fracture, Right Discharge Discharge Diagnosis / Problem: right hip fracture Discharge Goals Goal(s): Decrease discomfort, Improve function, Increase independence, Improve disease control, Learn about illness, Diagnostic testing, Therapeutic intervention Activity Recommendations Activity Limitations: per Instructions/Follow-up section (per ortho instructions) Exercise/Sports Limitations: none . Instructions / Follow-Up Instructions / Follow-Up Patient to be discharged back to [facility] Continue physical therapy at facility Percocet can be taken as directed for pain Please continue to take antibiotic cipro twice a day for 5 more days for treatment of UTI Please follow up with Dr Lanier in 1-2 weeks Current Hospital Diet Patient's current hospital diet: AHA Diet (Heart Healthy) Discharge Diet Recommended Diet: AHA Diet (Heart Healthy) Fluid Restriction: None Procedures Procedures Performed: ORIF Right trochanteric fracture with Synthes trans trochanteric femoral nailing Pending Studies Studies pending at discharge: no Medical Emergencies . Who to Call and When: Medical Emergencies: If at any time you feel your situation is an emergency, please call 911 immediately. . Non-Emergent Contact Non-Emergency issues call your: Primary Care Provider Call Non-Emergent contact if: your pain is worsening . . "Provider Documentation" section prepared by Clarke Brito. VTE Core Measure Inpt VTE Proph given/why not?: Other Anticoagulation
--- NOTE | 2016-05-31 13:18 | Orthopedic Progress Note ---
Orthopedic Progress Note Date of Service May 31, 2016. Subjective Post OP Day: 4 Reports: chest pain, Denies: SOB Additional Notes: Pt agitated upon seeing patient in room today with 1:1 care. Son arrived while in there and discussed further care, he notes she is a little more agitated than normal. Would like her to go [facility] for further rehab and recovery. Objective Date Time Temp Pulse Resp B/P Pulse Ox O2 Delivery O2 Flow Rate FiO2 05/31/16 11:51 37.0 88 20 130/70 96 Nasal Cannula 2.0 05/31/16 10:18 92 Nasal Cannula 2.0 05/31/16 08:30 Nasal Cannula 05/31/16 08:15 87 Room Air 05/31/16 07:59 37.1 74 20 132/74 96 Nasal Cannula 2.0 05/31/16 06:53 36.5 72 16 146/65 99 Nasal Cannula 2.0 05/31/16 04:25 69 136/70 05/31/16 03:14 36.3 69 16 112/67 100 Nasal Cannula 2.0 05/31/16 01:30 Nasal Cannula 2.0 05/30/16 22:51 37.0 80 16 110/51 97 Nasal Cannula 2.0 05/30/16 21:48 37.0 78 16 105/44 99 Nasal Cannula 2.0 05/30/16 21:20 36.4 78 16 105/63 99 2.0 05/30/16 20:53 36.7 80 16 103/57 97 Nasal Cannula 2.0 05/30/16 20:36 36.7 79 18 105/41 93 Nasal Cannula 2.0 05/30/16 20:18 37.1 73 18 103/43 100 05/30/16 18:07 36.8 70 18 128/48 100 Nasal Cannula 2.0 05/30/16 17:22 36.4 68 16 114/56 100 2.0 05/30/16 16:32 36.9 66 16 114/46 100 Nasal Cannula 2.0 05/30/16 15:45 94 Nasal Cannula 2.0 05/30/16 15:24 36.9 66 16 103/49 05/30/16 14:48 36.3 74 18 110/50 94 Nasal Cannula 2.0 05/30/16 14:22 36.8 76 16 92 2.0 05/30/16 14:17 36.8 71 16 93 Nasal Cannula 2.0 05/30/16 14:15 36.8 71 16 122/61 92 2.0 05/30/16 14:00 36.8 68 16 95/40 92 05/30/16 13:53 37.0 76 20 96/55 92 Laboratory Results 24 Hours: Test 05/30/16 20:30 05/31/16 06:47 Hematocrit 23.3 % 25.5 % Hemoglobin 8.1 g/dL 9.1 g/dL Assessment & Plan Assessment: POD 2 s/p Right TFN Post operative anemia--medicine following. Plan: PT/OT as able Planning for return to [facility] SNF when stable Inhouse Planning Pain Management: Oxy IR DVT Prophylaxis: TEDs, SCDs, Lovenox Discharge Planning Discharge Planning: correction facility
--- NOTE | 2016-05-31 14:56 | Progress Note ---
Subjective Date of Service: May 31, 2016. Subjective Pt evaluation today including: conversation w/ patient, physical exam, chart review, lab review, review of studies, review of inpatient medication list Problem List Medical Problems: (1) Fall Status: Acute (2) Intertrochanteric fracture of right hip Status: Acute Review of Systems Unable to obtain due to severe dementia Objective Vital Signs Date Time Temp Pulse Resp B/P Pulse Ox O2 Delivery O2 Flow Rate FiO2 05/31/16 11:51 37.0 88 20 130/70 96 Nasal Cannula 2.0 05/31/16 10:18 92 Nasal Cannula 2.0 05/31/16 08:30 Nasal Cannula 05/31/16 08:15 87 Room Air 05/31/16 07:59 37.1 74 20 132/74 96 Nasal Cannula 2.0 05/31/16 06:53 36.5 72 16 146/65 99 Nasal Cannula 2.0 05/31/16 04:25 69 136/70 05/31/16 03:14 36.3 69 16 112/67 100 Nasal Cannula 2.0 05/31/16 01:30 Nasal Cannula 2.0 05/30/16 22:51 37.0 80 16 110/51 97 Nasal Cannula 2.0 05/30/16 21:48 37.0 78 16 105/44 99 Nasal Cannula 2.0 05/30/16 21:20 36.4 78 16 105/63 99 2.0 05/30/16 20:53 36.7 80 16 103/57 97 Nasal Cannula 2.0 05/30/16 20:36 36.7 79 18 105/41 93 Nasal Cannula 2.0 05/30/16 20:18 37.1 73 18 103/43 100 05/30/16 18:07 36.8 70 18 128/48 100 Nasal Cannula 2.0 05/30/16 17:22 36.4 68 16 114/56 100 2.0 05/30/16 16:32 36.9 66 16 114/46 100 Nasal Cannula 2.0 05/30/16 15:45 94 Nasal Cannula 2.0 05/30/16 15:24 36.9 66 16 103/49 Physical Exam General Appearance: WD/WN, + mild distress, + thin Neck: supple, no adenopathy Respiratory/Chest: chest non-tender, lungs clear, normal breath sounds Cardiovascular: no edema, no gallop Abdomen: non tender, soft, no organomegaly Neurologic/Psychiatric: alert, + disoriented Laboratory Results Last 24 Hours Test 05/30/16 20:30 05/31/16 06:47 05/31/16 14:53 Hemoglobin 8.1 g/dL 9.1 g/dL Hematocrit 23.3 % 25.5 % White Blood Count 7.43 K/uL Red Blood Count 3.00 M/uL Mean Corpuscular Volume 85.0 fL Mean Corpuscular Hemoglobin 30.3 pg Mean Corpuscular Hemoglobin Concent 35.7 g/dl RDW Standard Deviation 44.2 fL RDW Coefficient of Variation 14.3 % Platelet Count 173 K/uL Mean Platelet Volume 9.8 fL Creatinine 1.10 mg/dl Est Creatinine Clear Calc Drug Dose 36.3 ml/min Estimated GFR () 53.8 Estimated GFR (Non- 46.4 Assessment and Plan 85 yo F with dementia and hypertension who presents with R hip fracture s/p mechanical fall : R hip fracture - NPO except meds - IV fluids - CXR and EKG completed, noted inverted T waves - ECHO - normal left ventricular size and systolic function. EF 55-60%. Dyskinesis of the apex. Akinesis of the mid to distal septum. Mild hypokinesis of the mid anteroseptum. No visualized apical thrombus. Mild concentric left ventricular hypertrophy. Type 1 diastolic dysfunction. -Appreciate cardiology recs - Dilaudid for pain - Dr Rosa consulted by ED, pt is acceptable moderate-high risk for surgery - Repair completed 05/28, however acute blood loss anemia noted on 05/29, transfused with 2 units PRBCS - On 05/30 hg 7.6, will transfuse additional 2 units PRBCs CAD with hx of CABG - Noted T wave inversions on EKG - ECHO as noted above - Appreciate cards recommendations, BB in perioperative period CKD stage 3 at baseline, cont to monitor PRPS Hypertension - Hold Lasix 10mg daily, hold amlodipine 5mg daily, hold aspirin 81mg daily - Hydralazine 10mg IV PRN SBP > 160 or DBP > 110 Depression - Hold Seroquel 50mg BID and Zoloft 200mg daily and restart post-operatively Constipation - Holding daily Senna/Miralax, restart post-op VTE - Hold pre-operatively CODE STATUS: DNR Dispo: Med Surg
[2016-05-31] MEDS ORDERED: OXYCODONE/ACETAMINOPHEN 5-325 TAB PO PRN (15:00)
[2016-05-31 15:45] LABS: HEMATOCRIT 27.5 % (37-47)
[2016-05-31] MEDS: VANCOMYCIN INJ 1,000 MG in SODIUM CHLORIDE 0.9% 250ML 250 ML IV SCH (19:04)
[2016-05-31] MEDS: CIPROFLOXACIN / D5W 400 MG in PREMIXED IN D5W 200 ML IV SCH (19:04)
[2016-06-01] MEDS: SODIUM CHLOR 0.45% + 20MEQ KCL 1,000 ML IV SCH (00:58)
[2016-06-01 01:00] VITALS: BP 151/72; PULSE 70; TEMP 37.2; O2SAT 100
[2016-06-01] MEDS: HydrALAZINE HCL 20 MG/ML VIAL IV. PRN ×2 (01:02→07:57)
[2016-06-01] MEDS: ACETAMINOPHEN 500 MG TAB PO PRN (01:36)
[2016-06-01] MEDS: LORAZEPAM INJ 0.5 MG in SYRINGE 0.75 ML IV PRN (01:39)
[2016-06-01 03:33] VITALS: BP 130/69; PULSE 76
[2016-06-01] MEDS: NITROGLYCERIN OINT 2% 1GM PACKET EXT SCH (03:37)
[2016-06-01 06:49] LABS: HEMATOCRIT 26.4 % (37-47); MEAN CELL VOLUME 84.9 fL (80-100); MEAN CORPUSCULAR HEMOGLOBIN 30.2 pg (25-34); MEAN CORPUSCULAR HGB CONC 35.6 g/dl (32-36); MEAN PLATELET VOLUME 8.7 fL (7.4-10.4); PLATELET COUNT 215 K/uL (130-400); RED BLOOD COUNT 3.11 M/uL (4.2-5.4); WHITE BLOOD COUNT 6.89 K/uL (4.8-10.8)
[2016-06-01 07:53] VITALS: BP 154/94; PULSE 76; TEMP 36.7; O2SAT 98
[2016-06-01 09:23] VITALS: BP 114/65; PULSE 93; O2SAT 92
[2016-06-01] MEDS: MULTIVITAMIN TAB PO SCH (09:32)
[2016-06-01] MEDS: METOPROLOL TARTRATE 25 MG TAB PO SCH (09:32)
[2016-06-01 09:33] VITALS: BP 114/65; PULSE 93; TEMP 36.7; O2SAT 98
[2016-06-01] MEDS: DOCUSATE SODIUM 100 MG CAP PO SCH (09:33)
--- NOTE | 2016-06-01 09:37 | Orthopedic Progress Note ---
Orthopedic Progress Note Date of Service Jun 01, 2016. Subjective Post OP Day: 5 Additional Notes: dementia, agitated and crying today Objective calves soft nontender, N/V intact, toes mobile Date Time Temp Pulse Resp B/P Pulse Ox O2 Delivery O2 Flow Rate FiO2 06/01/16 09:23 93 114/65 06/01/16 08:19 Nasal Cannula 2.0 06/01/16 07:53 36.7 76 18 154/94 98 Nasal Cannula 2.0 06/01/16 03:33 76 130/69 06/01/16 01:00 Nasal Cannula 2.0 06/01/16 01:00 37.2 70 14 151/72 100 Nasal Cannula 2.0 05/31/16 15:30 96 Nasal Cannula 2.0 05/31/16 14:49 96 05/31/16 14:49 36.8 69 14 155/73 100 Nasal Cannula 2.0 05/31/16 11:51 37.0 88 20 130/70 96 Nasal Cannula 2.0 05/31/16 10:18 92 Nasal Cannula 2.0 Laboratory Results 24 Hours: Test 05/31/16 15:34 06/01/16 06:40 Hematocrit 27.5 % 26.4 % Hemoglobin 9.8 g/dL 9.4 g/dL Assessment & Plan Assessment: POD 4 s/p Right TFN Post operative anemia--medicine following. Plan: PT/OT as able Planning for return to [facility] SNF when stable, possibly today Orthopedics will sign off, allow medicine to continue to follow Inhouse Planning DVT Prophylaxis: TEDs, SCDs, Lovenox Discharge Planning Discharge Planning: senior care facility
--- NOTE | 2016-06-01 10:52 | Discharge Summary ---
Discharge Summary Admission Date: May 27, 2016 at 19:31 Discharge Date: Jun 01, 2016 Discharge Disposition: senior living facility Principal Diagnosis: Right hip fracture Consultations: Orthopedic surgery Cardiology Medication Reconciliation New Medications: Ciprofloxacin Hcl (Cipro) 500 Mg Tab 500 MG PO BID for 5 Days, #10 TAB Oxycodone/Acetaminophen 5MG/325MG (Percocet 5MG/325MG) Tab 1 TABLET PO Q4H PRN for Pain, #30 TAB Continued Medications: Acetaminophen (Tylenol) 325 Mg Tab 650 MG PO Q6H, TAB Amlodipine Besylate (Norvasc) 5 Mg Tab 5 MG PO DAILY, TAB Aspirin (Aspir-81) 81 Mg Tab 2 TAB PO DAILY for 90 Days, #180 TAB 3 Refills Bisacodyl (Bisacodyl) 5 Mg Tab 2 TAB PO UD, #2 TAB Cholecalciferol (Vitamin D) 2,000 Unit Tab 1 TAB PO DAILY Dextromethorphan Hbr-Quinidine (Nuedexta) 1 Cap Cap 10-20 MG PO DAILY Furosemide (Lasix) 20 Mg Tab 10 MG PO DAILY Gabapentin (Neurontin) 100 Mg Cap 100 MG PO TID, CAP Lorazepam (Ativan) 0.5 Mg Tab 0.5 MG PO BID, TAB Magnesium Hydroxide (Milk Of Magnesia) 30 Ml Susp 30 ML PO UD PRN for Constipation, ML Metoprolol Tartrate (Lopressor) (Lopressor) 25 Mg Tab 25 MG PO BID, TAB Nutritional Supplements (Nutritional Drink) 1 Liq Liq 60 ML PO TID 2 rae/cc Polyethylene Glycol 3350 (Miralax) 1 Pow Pow 17 GM PO DAILY, #527 GM Multivit-Min W/Fe-Fa () 1 Tab Tab 1 TAB PO DAILY for 30 Days, #30 TAB 11 Refills Quetiapine Fumarate (Seroquel) 50 Mg Tab 50 MG PO BID, TAB Sertraline Hcl (Zoloft) 100 Mg Tab 200 MG PO DAILY, TAB Sodium Phosphates (Fleet Enema Six Pack) 1 Gaviota Gaviota 1 EA RE UD PRN for Constipation Discharge Exam Unable to obtain due to severe dementia Physical Exam: General Appearance: WD/WN, + mild distress, + thin Neck: supple, no adenopathy Respiratory/Chest: lungs clear, normal breath sounds Cardiovascular: no gallop, no JVD Abdomen / GI: non tender, soft Neurologic/Psychiatric: alert, + depressed affect, + disoriented Hospital Course 85 yo F with dementia and hypertension who presents with R hip fracture s/p mechanical fall : R hip fracture - CXR and EKG completed, noted inverted T waves - ECHO - normal left ventricular size and systolic function. EF 55-60%. Dyskinesis of the apex. Akinesis of the mid to distal septum. Mild hypokinesis of the mid anteroseptum. No visualized apical thrombus. Mild concentric left ventricular hypertrophy. Type 1 diastolic dysfunction. -Appreciate cardiology recs - Dilaudid for pain - Dr Rosa consulted by ED, pt is acceptable moderate-high risk for surgery - Repair completed 05/28, however acute blood loss anemia noted on 05/29, transfused with 2 units PRBCS - On 05/30 hg 7.6, will transfuse additional 2 units PRBCs - Remains hemodynamically stable for transfer back to SNF CAD with hx of CABG - Noted T wave inversions on EKG - ECHO as noted above - Appreciate cards recommendations, BB in perioperative period CKD stage 3 at baseline, cont to monitor PRPS Hypertension - Hold Lasix 10mg daily, hold amlodipine 5mg daily, hold aspirin 81mg daily - Hydralazine 10mg IV PRN SBP > 160 or DBP > 110 Depression - Hold Seroquel 50mg BID and Zoloft 200mg daily and restart post-operatively Constipation - Holding daily Senna/Miralax, restart post-op VTE - Hold pre-operatively CODE STATUS: DNR Dispo: Med Surg Total Time Spent: Greater than 30 minutes This includes examination of the patient, discharge planning, medication reconciliation, and communication with other providers. Discharge Instructions Please refer to the electronic Patient Visit Report (Discharge Instructions) for additional information.
[2016-06-01] MEDS ORDERED: VANCOMYCIN TROUGH ONE (23:30)
== END 2016-06-01 10:50 | DRG 481 ==
LOC: ENRESERVDT → ENRESERVTM → EDBD 17:24 → C.EDB 17:25 → C.MSW 19:31 → C.MSICU 22:11 → C.2T 05-28 20:01 → C.MSN 05-30 14:51
PROVIDERS: ADMIT Hospitalist; ATTEND Hospitalist
PROC: 0SS904Z Reposition Right Hip Joint with Internal Fixation Device, Open Approach (ICD-10-PCS; principal; 2016-05-28 16:30)
DX: S72.141A Displaced intertrochanteric fracture of right femur, initial encounter for closed fracture (principal); D62 Acute posthemorrhagic anemia; F32.9 Major depressive disorder, single episode, unspecified; F03.90 Unspecified dementia, unspecified severity, without behavioral disturbance, psychotic disturbance, mood disturbance, and anxiety; R00.1 Bradycardia, unspecified; N18.3 Chronic kidney disease, stage 3 (moderate); I25.10 Atherosclerotic heart disease of native coronary artery without angina pectoris; K59.00 Constipation, unspecified; E78.5 Hyperlipidemia, unspecified; Z66 Do not resuscitate; Z95.1 Presence of aortocoronary bypass graft; I95.9 Hypotension, unspecified; I12.9 Hypertensive chronic kidney disease with stage 1 through stage 4 chronic kidney disease, or unspecified chronic kidney disease; R94.31 Abnormal electrocardiogram [ECG] [EKG]; W19.XXXA Unspecified fall, initial encounter; Y92.129 Unspecified place in nursing home as the place of occurrence of the external cause; I25.2 Old myocardial infarction; I34.0 Nonrheumatic mitral (valve) insufficiency; Z79.82 Long term (current) use of aspirin; Z79.899 Other long term (current) drug therapy

== ENCOUNTER → 2016-06-03 | Outpatient (CLI) | payer OTHER ==
[2016-06-03 09:13] LABS: ALT/SGPT 35 U/L (12-78); BLOOD UREA NITROGEN 24 mg/dl (7-18); BUN/CREATININE RATIO 24.2 (10-20); CALCIUM 8.5 mg/dl (8.5-10.1); CARBON DIOXIDE 20 mmol/L (21-32); CHLORIDE 108 mmol/L (98-107); GLUCOSE 111 mg/dl (70-99); POTASSIUM 3.7 mmol/L (3.5-5.1); SODIUM 140 mmol/L (136-145)
[2016-06-03 09:16] LABS: ALB/GLOB RATIO 0.8 (0.9-2); ALKALINE PHOSPHATASE 125 U/L (45-117); AST/SGOT 43 U/L (15-37)
== END | disposition home or self-care (01) ==
LOC: C.LABUPHEI 08:47
PROVIDERS: ATTEND Family Medicine
DX: D64.9 Anemia, unspecified (principal)

== ENCOUNTER → 2016-06-05 | Outpatient (CLI) | payer OTHER ==
[2016-06-05 08:57] LABS: BASO % 0.4 %; BASO ABS # 0.04 K/uL (0-0.2); COMPLETE YES; EOS % 3.4 %; HEMATOCRIT 27.5 % (37-47); IG% 0.5 %; LYMPH % 28.8 %; LYMPH ABS # 2.65 K/uL (1.2-3.4); MEAN CELL VOLUME 85.4 fL (80-100); MEAN CORPUSCULAR HEMOGLOBIN 29.2 pg (25-34); MEAN CORPUSCULAR HGB CONC 34.2 g/dl (32-36); MEAN PLATELET VOLUME 9.4 fL (7.4-10.4); MONO % 9.2 %; NEUT % 57.7 %; PLATELET COUNT 381 K/uL (130-400); RED BLOOD COUNT 3.22 M/uL (4.2-5.4); WHITE BLOOD COUNT 9.19 K/uL (4.8-10.8)
[2016-06-05 09:05] LABS: BLOOD UREA NITROGEN 31 mg/dl (7-18); BUN/CREATININE RATIO 28.4 (10-20); CALCIUM 8.3 mg/dl (8.5-10.1); CARBON DIOXIDE 22 mmol/L (21-32); CHLORIDE 109 mmol/L (98-107); GLUCOSE 121 mg/dl (70-99); POTASSIUM 4.2 mmol/L (3.5-5.1); SODIUM 140 mmol/L (136-145)
--- NOTE | 2016-06-06 12:01 | CODING QUERY NO DIAGNOSIS ---
TREATMENT RENDERED WITHOUT A DIAGNOSIS 32 To promote full compliance with coding requirements relating to patient care, physician participation is requested in all cases of physician coder uncertainty. Please assist us with providing a diagnosis/symptom for the test(s) below: A diagnosis/symptom was not documented on your Order. A valid diagnosis/symptom is required to bill all insurances. Please remember that we are unable to code a diagnosis of rule out, probable, possible, questionable, or suspected. DOS 06/05/16 Tests that require a diagnosis: * CBC WITH AUTO DIFF DIAGNOSIS: * PARTIAL RENAL PROFILE DIAGNOSIS: Provider Signature: Date: Thank you Edna Barr Health Information Management Once completed, please kindly fax back to [phone] For questions please call [phone]
== END ==
LOC: C.LABUPHEI 08:47
PROVIDERS: ATTEND Family Medicine
DX: Z00.00 Encounter for general adult medical examination without abnormal findings (principal)

== ENCOUNTER → 2016-06-25 | Outpatient (CLI) | payer OTHER ==
[2016-06-25 09:45] LABS: URINE APPEARANCE CLOUDY (CLEAR); URINE BILIRUBIN NEG (NEG); URINE COLOR YELLOW; URINE EPITHELIAL CELL AUTO >30 /lpf (0-5); URINE NITRITE POS (NEG); URINE PH 8.5 (4.5-7.5); URINE SPECIFIC GRAVITY 1.005 (1.000-1.030); UROBILINOGEN NEG (NEG)
[2016-06-25 09:58] LABS: MANUAL MICROSCOPIC REQUIRED? NO; REVIEW REQ? YES
== END ==
LOC: C.LABUPHEI 08:55
PROVIDERS: ATTEND Family Medicine
DX: R41.82 Altered mental status, unspecified (principal)

== ENCOUNTER → 2016-07-04 | Outpatient (CLI) | payer OTHER ==
[2016-07-04 08:52] LABS: URINE APPEARANCE CLEAR (CLEAR); URINE BILIRUBIN NEG (NEG); URINE COLOR YELLOW; URINE NITRITE NEG (NEG); URINE PH 5.5 (4.5-7.5); URINE SPECIFIC GRAVITY 1.006 (1.000-1.030); UROBILINOGEN NEG (NEG)
[2016-07-04 08:57] LABS: MANUAL MICROSCOPIC REQUIRED? NO; REVIEW REQ? NO
== END ==
LOC: C.LABUPHEI 08:05
PROVIDERS: ATTEND Family Medicine
DX: R35.0 Frequency of micturition (principal)

== ENCOUNTER → 2016-09-02 | Outpatient (CLI) | payer OTHER ==
[2016-09-02 09:24] LABS: BASO % 0.6 %; BASO ABS # 0.04 K/uL (0-0.2); COMPLETE YES; EOS % 5.8 %; IG% 0.2 %; LYMPH % 44.9 %; MEAN CELL VOLUME 86.7 fL (80-100); MEAN CORPUSCULAR HEMOGLOBIN 27.1 pg (25-34); MEAN CORPUSCULAR HGB CONC 31.3 g/dl (32-36); MEAN PLATELET VOLUME 9.2 fL (7.4-10.4); MONO % 7.5 %; PLATELET COUNT 339 K/uL (130-400); RED BLOOD COUNT 3.69 M/uL (4.2-5.4); WHITE BLOOD COUNT 6.24 K/uL (4.8-10.8)
[2016-09-02 09:31] LABS: ALT/SGPT 19 U/L (12-78); BLOOD UREA NITROGEN 28 mg/dl (7-18); BUN/CREATININE RATIO 25.5 (10-20); CARBON DIOXIDE 27 mmol/L (21-32); CHLORIDE 107 mmol/L (98-107); GLUCOSE 82 mg/dl (70-99); POTASSIUM 4.4 mmol/L (3.5-5.1); SODIUM 143 mmol/L (136-145)
[2016-09-02 09:34] LABS: ALB/GLOB RATIO 0.8 (0.9-2); ALKALINE PHOSPHATASE 143 U/L (45-117); AST/SGOT 19 U/L (15-37)
[2016-09-02 09:36] LABS: CALCIUM 9.6 mg/dl (8.5-10.1)
[2016-09-02 10:44] LABS: URINE APPEARANCE CLEAR (CLEAR); URINE BILIRUBIN NEG (NEG); URINE COLOR YELLOW; URINE NITRITE NEG (NEG); URINE PH 7.5 (4.5-7.5); URINE SPECIFIC GRAVITY 1.009 (1.000-1.030); UROBILINOGEN NEG (NEG); ZZUR CULT IF INDIC CLEAN CATCH NO
[2016-09-02 11:09] LABS: MANUAL MICROSCOPIC REQUIRED? NO; REVIEW REQ? NO
== END ==
LOC: C.LABUPHEI 09:05
PROVIDERS: ATTEND Family Medicine
DX: R45.1 Restlessness and agitation (principal); M62.81 Muscle weakness (generalized)

== ENCOUNTER → 2016-09-16 | Outpatient (CLI) | payer OTHER ==
[2016-09-16 10:14] LABS: BLOOD UREA NITROGEN 27 mg/dl (7-18); BUN/CREATININE RATIO 22.2 (10-20); CALCIUM 9.3 mg/dl (8.5-10.1); CARBON DIOXIDE 30 mmol/L (21-32); CHLORIDE 105 mmol/L (98-107); GLUCOSE 81 mg/dl (70-99); POTASSIUM 4.6 mmol/L (3.5-5.1); SODIUM 141 mmol/L (136-145)
== END ==
LOC: C.LABUPHEI 09:32
PROVIDERS: ATTEND Family Medicine
DX: M62.81 Muscle weakness (generalized) (principal)

== ENCOUNTER → 2016-11-28 | Outpatient (CLI) | payer OTHER ==
[2016-11-28 16:03] LABS: URINE APPEARANCE TURBID (CLEAR); URINE BILIRUBIN NEG (NEG); URINE COLOR YELLOW; URINE EPITHELIAL CELL AUTO >30 /lpf (0-5); URINE NITRITE NEG (NEG); URINE PH 8.5 (4.5-7.5); URINE SPECIFIC GRAVITY 1.019 (1.000-1.030); UROBILINOGEN NEG (NEG)
[2016-11-28 16:11] LABS: MANUAL MICROSCOPIC REQUIRED? NO; REVIEW REQ? YES
== END | disposition home or self-care (01) ==
LOC: C.LABUPHEI 15:26
PROVIDERS: ATTEND Family Medicine
DX: R30.0 Dysuria (principal)

== ENCOUNTER → 2017-03-16 | Outpatient (CLI) | payer OTHER ==
[~2017-03-16] MED LIST changes: -OXYC-57 PO
[2017-03-16 09:14] LABS: BASO % 0.5 %; BASO ABS # 0.05 K/uL (0-0.2); COMPLETE YES; EOS % 2.9 %; HEMATOCRIT 29.9 % (37-47); IG% 0.3 %; LYMPH % 26.9 %; LYMPH ABS # 2.51 K/uL (1.2-3.4); MEAN CELL VOLUME 89.3 fL (80-100); MEAN CORPUSCULAR HEMOGLOBIN 29.6 pg (25-34); MEAN CORPUSCULAR HGB CONC 33.1 g/dl (32-36); MEAN PLATELET VOLUME 9.8 fL (7.4-10.4); MONO % 6.9 %; NEUT % 62.5 %; PLATELET COUNT 316 K/uL (130-400); RED BLOOD COUNT 3.35 M/uL (4.2-5.4); WHITE BLOOD COUNT 9.33 K/uL (4.8-10.8)
== END ==
LOC: C.LABUPHEI 09:02
PROVIDERS: ATTEND Nurse Practitioner Family
DX: I10 Essential (primary) hypertension (principal)

== ENCOUNTER → 2017-03-20 | Outpatient (CLI) | payer OTHER | LOC: C.LABUPHEI 08:38 | PROVIDERS: ATTEND Nurse Practitioner Family | DX: N18.9 Chronic kidney disease, unspecified (principal) ==

== ENCOUNTER → 2017-03-31 | Outpatient (CLI) | payer OTHER ==
[2017-03-31 08:52] LABS: BASO % 0.5 %; BASO ABS # 0.05 K/uL (0-0.2); COMPLETE YES; HEMATOCRIT 35.8 % (37-47); IG% 0.2 %; LYMPH % 34.6 %; LYMPH ABS # 3.29 K/uL (1.2-3.4); MEAN CELL VOLUME 91.3 fL (80-100); MEAN CORPUSCULAR HEMOGLOBIN 29.1 pg (25-34); MEAN CORPUSCULAR HGB CONC 31.8 g/dl (32-36); MEAN PLATELET VOLUME 10.3 fL (7.4-10.4); MONO % 6.7 %; PLATELET COUNT 330 K/uL (130-400); RED BLOOD COUNT 3.92 M/uL (4.2-5.4); WHITE BLOOD COUNT 9.51 K/uL (4.8-10.8)
[2017-03-31 09:01] LABS: ALT/SGPT 22 U/L (12-78); BLOOD UREA NITROGEN 44 mg/dl (7-18); BUN/CREATININE RATIO 34.7 (10-20); CALCIUM 9.9 mg/dl (8.5-10.1); CARBON DIOXIDE 31 mmol/L (21-32); CHLORIDE 105 mmol/L (98-107); CREATININE 1.26 mg/dl (0.60-1.20); GLUCOSE 104 mg/dl (70-99); POTASSIUM 4.4 mmol/L (3.5-5.1); SODIUM 142 mmol/L (136-145)
[2017-03-31 09:02] LABS: ALB/GLOB RATIO 0.7 (0.9-2); ALKALINE PHOSPHATASE 193 U/L (45-117); AST/SGOT 23 U/L (15-37)
[2017-03-31 12:31] LABS: ESTIMATED AVERAGE GLUCOSE 123 mg/dl; HA1C FLAG Normal (Normal)
--- NOTE | 2017-04-06 11:39 | CODING QUERY MEDICAL NECESSITY ---
SUPPORTING DIAGNOSIS NEEDED Caron BURK, A supporting diagnosis is required for the test/procedure performed on this patient in order for us to be reimbursed by the patient's insurance. Please provide a supporting diagnosis for the following test/procedure listed below next to the test name along with your signature. *If there is no additional diagnosis for this patient that would support the following test/procedure please document that below next to the test/procedure. Test(s)/Procedure(s) that require a supporting diagnosis: * [id number] GLYCATED HEMOGLOBIN DIAGNOSIS: DATE OF SERVICE: 03/31/17 Provider Signature: Date: Thank you Johny Vanessa Health Information Management Once completed, please kindly fax back to [phone] For questions please call [phone]
== END ==
LOC: C.LABUPHEI 08:29
PROVIDERS: ATTEND Nurse Practitioner Family
DX: I10 Essential (primary) hypertension (principal)

== ENCOUNTER → 2017-04-01 | Outpatient (CLI) | payer OTHER | LOC: C.LABUPHEI 08:19 | PROVIDERS: ATTEND Nurse Practitioner Family | DX: T81.4XXA Infection following a procedure, initial encounter (principal); X58.XXXA Exposure to other specified factors, initial encounter ==